=== PATIENT | female | born 1980 ===

== ENCOUNTER 2020-05-25 19:22 | Outpatient (REF) | payer OTHER, MEDICARE, SELFPAY ==
--- NOTE | ~2020-05-25 | MR_ITS ---
EXAMINATION: BRAIN MRI WITHOUT CONTRAST CLINICAL INFORMATION: Multiple sclerosis. COMPARISON: No relevant prior imaging. TECHNIQUE: Multiplanar MR imaging of the brain was performed without contrast. FINDINGS: There is no intracranial mass effect or midline shift. No abnormal extra-axial collection. Lateral and third ventricles are normal. No hydrocephalus. Midline structures including the cervicomedullary junction are normal. No acute bone marrow signal changes. There are a few scattered nonspecific foci of T2 FLAIR signal hyperintensity within the supratentorial white matter. No infratentorial white matter disease. No acute territorial infarct. Intracranial vascular flow voids are maintained. There is no mastoid middle ear effusion. Mild paranasal sinus disease primarily affecting the ethmoid air cells. Globes and orbits are symmetric. MR/MR head/brain wo con IMPRESSION: Unremarkable examination. No evidence of demyelinating disease.
== END 2020-05-25 19:23 | disposition home or self-care (01) ==
LOC: HO.MRI 19:22
PROVIDERS: Visit Provider Internal Medicine
DX: G35 Multiple sclerosis (principal)
CPT/HCPCS: 70551

== ENCOUNTER → 2021-04-21 10:40 | Outpatient (REF) | payer OTHER, MEDICARE, SELFPAY ==
--- NOTE | 2021-04-21 10:44 | CA_ITS ---
Acquisition Time: 2021-04-21 10:38:35 Total Exercise Time: 00:05:36 Test Indications: CP Medications: SEE CHART Protocol: ABRAHAM Max HR: 153 BPM 86% of Pred: 177 BPM Max BP: 192/090 mmHG Max Work Load: 7.0 METS Exercise stress test with exercise 5 min 36 sec of Abraham protocol, achieving 86% MPHR, with report of moderate shortness of breath and 9/10 left chest burning , without arrythmia, with hypertensive response to exercise with max BP 192/90, without EKG changes meeting criteria for ischemia. In recovery her chest discomfort gradually improved and resolved and her BP returned to below baseline. Test reviewed with Dr Adorno. Message sent to Dr Martin with findings and recommendation for pharmacological nuclear stress test. Referred By: Josseline Carrera Overread By: SHANNAN GUEVARA
== END ==
LOC: HO.CARD 10:40
PROVIDERS: Visit Provider Internal Medicine
DX: R07.2 Precordial pain (principal)
CPT/HCPCS: 93017

== ENCOUNTER 2021-04-25 17:27 | Outpatient (REF) | payer OTHER, SELFPAY ==
[2021-04-25 17:47] LABS: Hematocrit 40.8 % (37.0-47.0); Hemoglobin 13.3 g/dl (12.0-16.0); Mean Corpuscular HGB Conc 32.6 g/dl (31.0-35.0); Mean Corpuscular Hemoglobin 29.6 pg (27.0-33.0); Mean Corpuscular Volume 90.7 fL (80.0-98.0); Mean Platelet Volume 12.1 fL (9.4-12.3); Platelet Count 221 X10*3/uL (160-400); White Blood Count 7.6 X10*3/uL (4.8-10.8)
[2021-04-25 17:47] LABS: Appearance Urine CLEAR; Color Urine YELLOW; Glucose Urine UA NEG (NEG); Leukocyte Esterase Urine TRACE (NEG); Nitrite Urine NEG (NEG); UACC Culture Trigger YES; Urine Blood NEG (NEG); Urine Ketones NEG (NEG); Urine Protein NEG (NEG-TRACE)
[2021-04-25 18:06] LABS: Alanine Aminotransferase 74 U/L (0-31); Alkaline Phosphatase 82 U/L (39-117); Anion Gap 14 (12-20); Aspartate Amino Transferase 60 U/L (5-31); Bilirubin Total 0.2 mg/dL (0.0-1.0); Blood Urea Nitrogen 10 mg/dL (9-16); Calcium 9.3 mg/dL (8.4-10.2); Carbon Dioxide 26 mmol/L (22-29); Chloride 106 mmol/L (96-108); Estimated Glomerular Filt Rate > 60; Glucose Random 95 mg/dL (60-115); Potassium 4.5 mmol/L (3.3-5.1); Sodium 141 mmol/L (135-145)
[2021-04-25 18:48] LABS: Bacteria Urine 1+ /LPF; RBC Urine 0 /HPF (0); Squamous Epithelial Cell Urine 1+ /LPF; WBC Urine 0-2 /HPF (0-4)
== END 2021-04-25 17:28 | disposition home or self-care (01) ==
LOC: HO.LAB 17:27
PROVIDERS: PCP Internal Medicine; Visit Provider Nurse Practitioner Family
DX: M54.9 Dorsalgia, unspecified (principal)
CPT/HCPCS: 36415; 80053; 81001; 85027; 87086; 87147

== ENCOUNTER → 2021-04-26 11:59 | Outpatient (BNVA) | payer MEDICARE, OTHER, SELFPAY | PROVIDERS: PCP Internal Medicine; Referring Provider Internal Medicine; Visit Provider Physician Assistant Surgical | DX: Z13.89 Encounter for screening for other disorder (principal) ==

== ENCOUNTER → 2021-05-03 13:53 | Outpatient (BNVA) | payer OTHER, MEDICARE, SELFPAY | PROVIDERS: PCP Internal Medicine; Referring Provider Internal Medicine; Visit Provider Physician Assistant Surgical | DX: E66.01 Morbid (severe) obesity due to excess calories (principal); Z71.3 Dietary counseling and surveillance | CPT/HCPCS: 99212 ==

== ENCOUNTER 2021-05-18 12:52 | Outpatient (REF) | payer OTHER, MEDICARE, SELFPAY ==
--- NOTE | ~2021-05-18 | XR_ITS ---
EXAMINATION: XR CHEST CLINICAL INFORMATION: Morbid obesity COMPARISON: 03/07/2019 TECHNIQUE: 2 views of the chest were obtained. FINDINGS: Normal symmetric lung volumes. No parenchymal consolidation. No pleural effusion. No pneumothorax. Cardiomediastinal silhouette and pulmonary vascularity are within normal limits. No acute osseous abnormalities. XR/XR chest 2V IMPRESSION: No acute findings
--- NOTE | 2021-05-18 12:59 | ECG_ITS ---
Test Reason : E66.01 Blood Pressure : / mmHG Vent. Rate : 091 BPM Atrial Rate : 091 BPM P-R Int : 162 ms QRS Dur : 074 ms QT Int : 356 ms P-R-T Axes : 043 013 007 degrees QTc Int : 437 ms Normal sinus rhythm Normal ECG When compared with ECG of 11-JUL-2019 16:07, No significant change was found Referred By: Adonis Fox Electronically Signed By:JOE CHANG MD
[2021-05-18 14:13] LABS: Estimated Average Glucose 105 mg/dL; Hemoglobin A1c % 5.3 %
[2021-05-18 14:32] LABS: C Reactive Protein 0.79 mg/dL (< or = 0.50); Cholesterol 194 mg/dL; HDL Cholesterol 50 mg/dL; Iron 110 mcg/dL (30-160); LDL Cholesterol Calculated 111 mg/dl; Percent Iron Saturation 24 % (15-50); Total Iron Binding Capacity 454 mcg/dL (228-428); Triglycerides 169 mg/dL; Unsaturated Iron Binding 344 ug/dL
[2021-05-18 14:54] LABS: Ferritin 185 ng/mL (10-250); TSH reflex Free T4 1.55 uIU/mL (0.32-4.0); Vitamin D 25-OH Total 24.4 ng/mL (>30)
[2021-05-18 15:05] LABS: Folate 19.6 ng/mL (> or = 4.0); Vitamin B12 759 pg/mL (200-900)
[2021-05-18 15:26] LABS: Appearance Urine CLEAR; Color Urine YELLOW; Glucose Urine UA NEG (NEG); Leukocyte Esterase Urine 1+ (NEG); Nitrite Urine NEG (NEG); Specific Gravity - Urine 1.025 (1.005-1.025); UACC Culture Trigger YES; Urine Blood NEG (NEG); Urine Ketones 5 MG/DL (NEG); Urine Protein NEG (NEG-TRACE)
[2021-05-18 15:41] LABS: Bacteria Urine 2+ /LPF; Squamous Epithelial Cell Urine TRACE /LPF
[2021-05-19 15:02] LABS: Calcium (PTHI) 9.3 mg/dL (8.6-10.2); PTHI 54 pg/mL (16-77)
[2021-05-23 01:47] LABS: Zinc 101 mcg/dL (60-130)
[2021-05-23 09:17] LABS: Vitamin A 63 mcg/dL (38-98)
[2021-05-23 12:37] LABS: Vitamin B1 23 nmol/L (8-30)
== END 2021-05-18 12:53 | disposition home or self-care (01) ==
LOC: HO.XRAY 12:52
PROVIDERS: Nurse Practitioner Family; PCP Internal Medicine; Visit Provider Physician Assistant Surgical
DX: Z01.818 Encounter for other preprocedural examination (principal); E66.01 Morbid (severe) obesity due to excess calories
CPT/HCPCS: 36415; 71046; 80061; 81001; 82306; 82607; 82728; 82746; 83036; 83540; 83970; 84425; 84443; 84590; 84630; 86140; 87086; 87147; 93005

== ENCOUNTER → 2021-05-23 08:06 | Outpatient (BNVA) | payer MEDICARE, OTHER, SELFPAY | PROVIDERS: PCP Internal Medicine; Visit Provider Surgery | DX: Z13.89 Encounter for screening for other disorder (principal) | CPT/HCPCS: Q3014 ==

== ENCOUNTER → 2021-05-25 12:30 | Outpatient (BNVA) | payer OTHER, MEDICARE, SELFPAY | PROVIDERS: PCP Internal Medicine; Visit Provider Counselor Mental Health | DX: F33.0 Major depressive disorder, recurrent, mild (principal) | CPT/HCPCS: 90791 ==

== ENCOUNTER → 2021-06-01 09:09 | Outpatient (REF) | payer OTHER, MEDICARE, SELFPAY ==
--- NOTE | ~2021-06-01 | NM_ITS ---
Lexiscan Myocardial perfusion study Indication: Chest pain, assess for coronary disease and ischemia Technique: The patient was brought in for a Lexiscan perfusion study on 06/01/2021 and was injected 0.4 mg of Lexiscan intravenously. Within a minute of this injection 35 mCi of sestamibi was given intravenously. Images were obtained using the SPECT gamma camera interlaced with the gating device. Images were obtained in supine position. Resting perfusion study was performed on 06/02/2021. Patient was administered 35 mCi of sestamibi intravenously at rest. Images were then obtained in supine position. Total DLP 159mGy-cm. Images were processed with the software and compared side to side in short axis, horizontal long axis and vertical long axis views. Findings: Raw acquisition was reviewed. The stress perfusion study showed no significant perfusion abnormality. Both uncorrected as well as CT attenuation corrected images were reviewed. The gated study shows normal LV systolic function with calculated LVEF of > 70%. LV cavity is normal in size. The gated study shows normal wall thickening and contraction of segments. Resting study shows no significant perfusion abnormality. Gating at rest reveals normal wall motion with ejection fraction at 57%. The findings are consistent with no reversible or fixed perfusion abnormality. NM/NM cardiolite stress test Impression: 1. Myocardial perfusion imaging study shows likely normal perfusion. No definitive evidence of any ischemia or infarction. 2. Gated LVEF is 73% during stress and 57% during rest. 3. Transient ischemic dilatation not present. EKG component of the test reported separately.
--- NOTE | 2021-06-01 09:18 | CA_ITS ---
Acquisition Time: 2021-06-01 09:30:08 Total Exercise Time: 00:02:00 Test Indications: CP Medications: SEE CHART Protocol: LEXISCAN Max HR: 130 BPM 73% of Pred: 177 BPM Max BP: 114/062 mmHG Max Work Load: 1.0 METS Pharmalogical stress test using Lexiscan while sitting and kicking her feet. Pt tolerated well, denies any anginal sx. EKG without any arrhythmias, non-diagnostic for ischemia. Normotensive response to test. Test reviewed with Dr. Adorno. Referred By: Josseline Carrera Overread By: Alyssa Lagunas NP
== END ==
LOC: HO.CARD 09:09
PROVIDERS: PCP Internal Medicine; Visit Provider Internal Medicine
DX: R07.2 Precordial pain (principal)
CPT/HCPCS: 78452; 93017; A9500; J0280; J2785

== ENCOUNTER → 2021-06-08 08:06 | Outpatient (BNVA) | payer OTHER, MEDICARE, SELFPAY | PROVIDERS: PCP Internal Medicine; Visit Provider Dietitian, Registered | DX: E66.01 Morbid (severe) obesity due to excess calories (principal) | CPT/HCPCS: 97802 ==

== ENCOUNTER → 2021-06-15 14:00 | Outpatient (BNVA) | payer OTHER, MEDICARE, SELFPAY | PROVIDERS: PCP Internal Medicine; Visit Provider Counselor Mental Health | DX: F33.0 Major depressive disorder, recurrent, mild (principal); E66.01 Morbid (severe) obesity due to excess calories | CPT/HCPCS: 90834 ==

== ENCOUNTER 2021-06-16 12:50 | Outpatient (REF) | payer OTHER, MEDICARE, SELFPAY ==
--- NOTE | 2021-06-16 17:15 | PFT_ITS ---
FLOWS: FEV1 91% of predicted at 2.61 L. FVC 84% of predicted at 2.92 L. FEV1 to FVC ratio of 0.89. No bronchodilator response except in small to medium airways. LUNG VOLUMES: Total lung capacity 83% of predicted at 4.08 L. Residual volume 76% of predicted at 1.22 L. Slow vital capacity 86% of predicted at 2.86 L. Expiratory reserve volume 36% of predicted at 0.40 L. Diffusion capacity is normal. IMPRESSION: No obstructive or restrictive ventilatory defect. No bronchodilator response except in small to medium airways. Decreased expiratory reserve volume suggests extrathoracic restriction, likely secondary to abdominal obesity. Federico Bartlett MD AP/MODL / [id number]
[2021-06-17 12:48] LABS: H Pylori Breath Test Negative (Negative)
== END 2021-06-16 12:51 | disposition home or self-care (01) ==
LOC: HO.RESP 12:50
PROVIDERS: Physician Assistant Surgical; PCP Internal Medicine; Visit Provider Internal Medicine
DX: R06.00 Dyspnea, unspecified (principal); E66.01 Morbid (severe) obesity due to excess calories
CPT/HCPCS: 36415; 83013; 94060; 94727; 94729; 99211

== ENCOUNTER → 2021-06-28 14:15 | Outpatient (BNVA) | payer OTHER, MEDICARE, SELFPAY | PROVIDERS: PCP Internal Medicine; Visit Provider Counselor Mental Health | DX: F33.0 Major depressive disorder, recurrent, mild (principal) | CPT/HCPCS: 90834 ==

== ENCOUNTER → 2021-06-29 08:14 | Outpatient (BNVA) | payer OTHER, MEDICARE, SELFPAY | PROVIDERS: PCP Internal Medicine; Visit Provider Surgery | DX: E66.9 Obesity, unspecified (principal) ==

== ENCOUNTER → 2021-06-30 08:14 | Outpatient (BNVA) | payer OTHER, MEDICARE, SELFPAY | PROVIDERS: PCP Internal Medicine; Referring Provider Surgery; Visit Provider Dietitian, Registered | DX: E66.9 Obesity, unspecified (principal); Z68.39 Body mass index [BMI] 39.0-39.9, adult | CPT/HCPCS: 97803 ==

== ENCOUNTER 2021-07-05 09:16 | Outpatient (REF) | payer OTHER, MEDICARE, SELFPAY ==
--- NOTE | ~2021-07-05 | FL_ITS ---
EXAMINATION: XR FLUOROSCOPY UPPER GI WITH AIR CLINICAL INFORMATION: Obesity COMPARISON: None TECHNIQUE: Upper GI was performed using thin and thick barium and effervescent granules. FINDINGS: Esophageal motility is normal. There is gastroesophageal reflux. There is a small sliding-type hiatal hernia. Stomach and duodenum are normal-appearing. No fold thickening, mass, ulcer or stricture is seen FLUOROSCOPY TIME: 0.8 minutes DOSE AREA PRODUCT: 4.3 chilel per centimeter squared. 20 saved fluoroscopic images. FL/FL upper GI w air IMPRESSION: Gastroesophageal reflux and small sliding-type hiatal hernia.
--- NOTE | ~2021-07-05 | XR_ITS ---
EXAMINATION: XR knee LT 2V, XR knee RT 2V CLINICAL INFORMATION: Pain COMPARISON: Knee radiographs 04/24/2014 TECHNIQUE: 4 views of the bilateral knees FINDINGS: RIGHT KNEE: No acute fracture or dislocation. Mild degenerative changes of the knee involving the patellofemoral joint with degenerative spurring, quadriceps and Achilles tendon enthesopathy. Trace suprapatellar joint effusion. Soft tissues are unremarkable. LEFT KNEE: No acute fracture or dislocation. Mild degenerative changes of the knee involving the patellofemoral compartment with small total femoral osteophytes. Trace suprapatellar joint effusion. Soft tissues are unremarkable. 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
--- NOTE | ~2021-07-05 | XR_ITS ---
EXAMINATION: XR knee LT 2V, XR knee RT 2V CLINICAL INFORMATION: Pain COMPARISON: Knee radiographs 04/24/2014 TECHNIQUE: 4 views of the bilateral knees FINDINGS: RIGHT KNEE: No acute fracture or dislocation. Mild degenerative changes of the knee involving the patellofemoral joint with degenerative spurring, quadriceps and Achilles tendon enthesopathy. Trace suprapatellar joint effusion. Soft tissues are unremarkable. LEFT KNEE: No acute fracture or dislocation. Mild degenerative changes of the knee involving the patellofemoral compartment with small total femoral osteophytes. Trace suprapatellar joint effusion. Soft tissues are unremarkable. 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
--- NOTE | ~2021-07-05 | US_ITS ---
EXAMINATION: US COMPLETE ABDOMEN WITH LIVER ELASTOGRAPHY CLINICAL INFORMATION: Obesity COMPARISON: Previous abdominal ultrasound from 2014 TECHNIQUE: Real-time imaging of the abdominal viscera. Noninvasive ultrasound liver fibrosis assessment is performed using Sim ElastPQ point quantification shear wave elastography (2D-SWE) with a C5-2 MHz transducer. Multiple elastography samples are obtained. FINDINGS: PANCREAS: Normal. ABDOMINAL AORTA: The proximal, middle, and distal aortic segments are normal in caliber. INFERIOR VENA CAVA: Visualized portions are normal. LIVER: Liver echotexture is increased. The liver demonstrates normal size and contour. No focal lesion or intrahepatic biliary duct dilatation. The right lobe measures 17 cm in length. The left lobe measures 12 cm in length. Portal flow is normal/hepatopedal Shear wave liver elastography median stiffness is 1.5 m/s (reference: normal median stiffness is 1.3 m/s or less). IQR/median stiffness to assess sampling precision is 0.07 (reference: good quality data set is IQR/median stiffness of 0.15 or less). GALLBLADDER: Surgically removed. COMMON BILE DUCT: Normal in caliber measuring 0.6 cm in diameter. RIGHT KIDNEY: Normal. No hydronephrosis. No renal calculi or focal parenchymal lesions. The kidney measures 10 cm in maximum dimension. LEFT KIDNEY: Normal. No hydronephrosis. No renal calculi or focal parenchymal lesions. The kidney measures 11 cm in maximum dimension. SPLEEN: Normal. The spleen measures 11 cm in maximum dimension. FREE FLUID: None. US/US abdomen comp w elastography IMPRESSION: 1. Impression: Echogenic liver suggestive of fatty infiltration. 2. Liver elastography: Adequate liver sampling. In the absence of other known clinical signs, rules out compensated advanced chronic liver disease. REFERENCE: Society of Radiologists in Ultrasound Liver Stiffness Thresholds (2020): LIVER STIFFNESS THRESHOLDS: *Liver Stiffness equal or less than 1.3 m/s: High probability of being normal. *Liver Stiffness less than 1.7 m/s: In the absence of other known clinical signs, rules out compensated advanced chronic liver disease. *Liver Stiffness 1.7-2.1 m/s: Suggestive of compensated advanced chronic liver disease but need further test for confirmation. *Liver Stiffness over 2.1 m/s: Rules in compensated advanced chronic liver disease. *Liver Stiffness over 2.4 m/s: Suggestive of clinically significant portal hypertension. QUALITY OF DATA SET: *IQR/Median value equal or less than 0.15 implies a quality data set. *IQR/Median value over 0.15 implies a poor quality data set. SIGNIFICANT CHANGE FROM PRIOR EXAM: Significant change if liver stiffness measurement is 10% or greater from prior exam. OTHER CONSIDERATIONS: The stage of liver fibrosis may be overestimated in the setting of acute hepatitis, liver inflammation, elevated liver function tests, hepatic vascular congestion, obstructive cholestasis, non-fasting state, and infiltrative diseases such as amyloidosis and lymphoma. In some patients with NAFLD, the liver stiffness thresholds for compensated advanced chronic liver disease may be lower. In causes other than viral hepatitis and NAFLD, liver stiffness thresholds are not well established.
== END 2021-07-05 09:17 | disposition home or self-care (01) ==
LOC: HO.US 09:16
PROVIDERS: Visit Provider Surgery
DX: E66.01 Morbid (severe) obesity due to excess calories (principal); M25.562 Pain in left knee; M25.561 Pain in right knee
CPT/HCPCS: 73560; 74246; 76705; 76981

== ENCOUNTER → 2021-07-07 11:40 | Outpatient (BNVA) | payer OTHER, MEDICARE, SELFPAY | PROVIDERS: PCP Internal Medicine; Visit Provider Surgery | DX: E66.9 Obesity, unspecified (principal) ==

== ENCOUNTER → 2021-07-12 12:45 | Outpatient (BNVA) | payer OTHER, MEDICARE, SELFPAY | PROVIDERS: PCP Internal Medicine; Visit Provider Counselor Mental Health | DX: Z13.89 Encounter for screening for other disorder (principal) | CPT/HCPCS: 90834 ==

== ENCOUNTER → 2021-07-28 14:15 | Outpatient (BNVA) | payer OTHER, MEDICARE, SELFPAY | PROVIDERS: PCP Internal Medicine; Visit Provider Counselor Mental Health | DX: F33.0 Major depressive disorder, recurrent, mild (principal) | CPT/HCPCS: 90832 ==

== ENCOUNTER 2021-08-04 08:43 | Outpatient (REF) | payer OTHER, MEDICARE, SELFPAY ==
--- NOTE | ~2021-08-04 | XR_ITS ---
EXAMINATION: XR ABDOMEN KUB CLINICAL INDICATION: Calculus of kidney. COMPARISON: None TECHNIQUE: AP view of the abdomen. FINDINGS: There is scattered moderate stool and gas seen throughout the colon without any significant distention. There are surgical justin in the right upper quadrant from cholecystectomy changes. Partially visualized kidneys are grossly unremarkable. There is no organomegaly. No gross bony abnormality. XR/XR KUB IMPRESSION: Moderate constipation. No radiopaque calculi seen in this kidney however both kidneys are partially masked by stool in the colon.
[2021-08-04 09:14] LABS: MANUAL DIFF FLAG NO
[2021-08-04 09:40] LABS: Basophils Percent Auto 0.6 % (0-2); Eosinophils Absolute Auto 0.1 X10*3/uL (0.0-0.4); Eosinophils Percent Auto 1.9 % (0-4); Hematocrit 42.2 % (37.0-47.0); Hemoglobin 14.1 g/dl (12.0-16.0); Imm Gran Abs Auto 0.01 X10*3/uL (0.00-0.03); Imm Gran Pct Auto 0.2 % (0.0-0.4); Lymphocytes Absolute Auto 1.9 X10*3/uL (1.2-4.9); Lymphocytes Percent Auto 34.9 % (20-40); Mean Corpuscular HGB Conc 33.4 g/dl (31.0-35.0); Mean Corpuscular Hemoglobin 29.7 pg (27.0-33.0); Mean Platelet Volume 12.7 fL (9.4-12.3); Monocytes Absolute Auto 0.4 X10*3/uL (0.1-1.2); Neutrophils Absolute Auto 2.9 x10*3/uL (2.0-8.3); Neutrophils Percent Auto 54.4 % (45-73); Platelet Count 215 X10*3/uL (160-400); Red Blood Count 4.74 X10*6/uL (4.20-5.50); Red Cell Distribution Width 13.1 % (11.0-16.0); White Blood Count 5.4 X10*3/uL (4.8-10.8)
[2021-08-04 10:19] LABS: Alanine Aminotransferase 189 U/L (0-31); Albumin Level 4.2 g/dL (3.5-5.0); Alkaline Phosphatase 77 U/L (39-117); Anion Gap 11 (12-20); Aspartate Amino Transferase 91 U/L (5-31); Bilirubin Total 0.3 mg/dL (0.0-1.0); Blood Urea Nitrogen 10 mg/dL (9-16); Calcium 9.5 mg/dL (8.4-10.2); Carbon Dioxide 27 mmol/L (22-29); Chloride 106 mmol/L (96-108); Cholesterol 193 mg/dL; Estimated Glomerular Filt Rate > 60; Glucose Fasting 115 mg/dL (60-99); HDL Cholesterol 49 mg/dL; LDL Cholesterol Calculated 101 mg/dl; Potassium 4.6 mmol/L (3.3-5.1); Sodium 139 mmol/L (135-145); Triglycerides 215 mg/dL
[2021-08-04 10:41] LABS: Thyroid Stimulating Hormone 2.08 uIU/mL (0.32-4.0); Vitamin D 25-OH Total 55.1 ng/mL (>30)
== END 2021-08-04 08:44 | disposition home or self-care (01) ==
LOC: HO.XRAY 08:43
PROVIDERS: PCP Internal Medicine; Visit Provider Internal Medicine
DX: N20.0 Calculus of kidney (principal); E55.9 Vitamin D deficiency, unspecified; L50.9 Urticaria, unspecified
CPT/HCPCS: 36415; 74018; 80053; 80061; 82306; 84443; 85025

== ENCOUNTER 2021-08-09 08:19 | Inpatient (IN) | payer OTHER, MEDICARE, SELFPAY ==
[2021-08-04 15:44] VITALS: BMI 36.5
[2021-08-05 11:34] LABS: MANUAL DIFF FLAG NO
[2021-08-05 11:50] LABS: Basophils Percent Auto 0.6 % (0-2); Eosinophils Absolute Auto 0.1 X10*3/uL (0.0-0.4); Eosinophils Percent Auto 1.3 % (0-4); Hematocrit 40.3 % (37.0-47.0); Hemoglobin 13.4 g/dl (12.0-16.0); Imm Gran Abs Auto 0.01 X10*3/uL (0.00-0.03); Imm Gran Pct Auto 0.2 % (0.0-0.4); Lymphocytes Absolute Auto 2.3 X10*3/uL (1.2-4.9); Lymphocytes Percent Auto 37.5 % (20-40); Mean Corpuscular HGB Conc 33.3 g/dl (31.0-35.0); Mean Corpuscular Hemoglobin 29.5 pg (27.0-33.0); Mean Corpuscular Volume 88.8 fL (80.0-98.0); Mean Platelet Volume 12.6 fL (9.4-12.3); Monocytes Absolute Auto 0.5 X10*3/uL (0.1-1.2); Monocytes Percent Auto 8.1 % (2-11); Neutrophils Absolute Auto 3.2 x10*3/uL (2.0-8.3); Neutrophils Percent Auto 52.3 % (45-73); Platelet Count 206 X10*3/uL (160-400); Red Blood Count 4.54 X10*6/uL (4.20-5.50); Red Cell Distribution Width 13.2 % (11.0-16.0); White Blood Count 6.2 X10*3/uL (4.8-10.8)
[2021-08-05 11:56] LABS: INTERNATIONAL NORM RATIO 0.9 (0.9-1.1); Prothrombin Time 10.2 SEC (9.9-13.0)
[2021-08-05 11:58] LABS: Partial Thromboplastin Time 32.2 SEC (24.1-38.0)
[2021-08-05 12:04] LABS: Estimated Average Glucose 97 mg/dL
[2021-08-05 12:33] LABS: Alanine Aminotransferase 182 U/L (0-31); Albumin Level 4.1 g/dL (3.5-5.0); Alkaline Phosphatase 77 U/L (39-117); Anion Gap 13 (12-20); Aspartate Amino Transferase 93 U/L (5-31); Bilirubin Total 0.4 mg/dL (0.0-1.0); Blood Urea Nitrogen 10 mg/dL (9-16); C Reactive Protein 1.22 mg/dL (< or = 0.50); Calcium 9.6 mg/dL (8.4-10.2); Carbon Dioxide 25 mmol/L (22-29); Chloride 107 mmol/L (96-108); Creatinine Clr Calc Pharmacy 112.5; Estimated Glomerular Filt Rate > 60; Glucose Random 107 mg/dL (60-115); Potassium 4.5 mmol/L (3.3-5.1); Sodium 140 mmol/L (135-145); Total Protein 6.8 g/dL (6.5-8.0)
[2021-08-05 12:45] LABS: Insulin 23 uU/mL (2-29); TSH reflex Free T4 1.34 uIU/mL (0.32-4.0)
--- NOTE | 2021-08-06 23:47 | P.HPSUR_ITS ---
Pre-Procedural Eval Section A Date of Service: 08/06/21 The patient is an INPATIENT: Yes The History & Physical has been completed within 30 days and I have reviewed it.: Yes Section B Chief Complaint: obesity Relevant Family History (Specify if Yes): No Relevant Social History: None Present Medications: None Medical History: No relevant PMH History of Previous Operations: No relevant previous surgery Allergies: Allergies Allergy/AdvReac Type Severity Reaction Status Date / Time bupropion Allergy Intermediate suicidal Verified 08/04/21 15:04 thoughts with higher doses Compazine Allergy Intermediate increased Verified 08/04/21 08:23 anxiety scopolamine [SCOPOLAMINE] Allergy Intermediate increased Verified 08/04/21 08:23 anxiety Review of Systems Sugical H&P ROS: Negative: Constitution, Cardiovascular, Respiratory, Neurological, Psychiatric, Hem-Onc, Allergic/Immunologic, Gastrointestinal, Genitourinary, Musculoskeletal, Integumentary, Endocrine and Eyes/Ears/N ose/Throat Exam Surgical H&P Exam: Normal: HEENT, Normal: Heart, Normal: Lungs, Normal: Extremities, Normal: Abdomen, Normal: Skin and Normal: Neurological Plan Diagnosis/Plan: Unchanged I have reviewed the history and physical and performed a pertinent physical examination on my patient. No changes have occurred unless specified.
--- NOTE | 2021-08-08 09:00 | HO.ANESPROP2 ---
Documented by User: Evelyn Rashid NP 08/08/21 09:03 HPI - Anesthesia Eval Consult details Narrative: 41yo F for Gastrectomy Sleeve,EGD,Possible diaphragmatic hernia,Possible ventral hernia,possible open PMFSH Active Problems Active Problems: All Active Problems (Updated 08/04/21 @ 15:34 by Radha Wolf RN) Anxiety (Acute) Physical exam (Acute) Mild asthma (Acute) GERD (gastroesophageal reflux disease) (Acute) Allergic rhinitis (Acute) Multiple sclerosis (Acute) Obesity (Acute) Morbid obesity (Acute) Ingrown toenail (Acute) Fibromyalgia (Acute) Knee pain (Acute) Sleep disturbance (Acute) Urticaria (Acute) Mild recurrent major depression (Acute) Skin spots-aging (Acute) Precordial chest pain (Acute) Dyspnea (Acute) Mid back pain (Acute) Left breast lump (Acute) Breast pain, right (Acute) BMI 39.0-39.9,adult (Acute) Flank pain (Acute) BMI 37.0-37.9, adult (Acute) Past Medical History Medical History Anxiety Depression History of COVID-19 Mild asthma Multiple sclerosis Panic attacks PONV (postoperative nausea and vomiting) Family History Family History Father Hypercholesteremia Hypertension Diabetes Obese Mother Diabetes Hypertension Hypercholesteremia Depression with anxiety Maternal Grandmother Liver problem Maternal Aunt Uterine cancer Maternal Uncle Kidney problem Family/Other Mental health disorder Surgical History Surgical History History of bilateral breast reduction surgery History of cholecystectomy History of partial hysterectomy Social History Social History Housing: Apartment Are you a primary hemodialysis patient care specialist to a significant other at home: No Do you presently have visiting nurse or other home services: No Alcohol intake: current Alcohol intake frequency: does not drink Alcohol type: wine and hard liquor Patient Tobacco Use Status: Never used Tobacco Tobacco use type: Cigarette e-Cigarette/Vaping Use: Never Used Second Hand Smoke Exposure: No Use of substances other than those prescribed or required for medical reasons: No Have you been hit, kicked, punched, or otherwise hurt by someone within the past year? If so, by whom?: No Are you DNR?: No Advance Directives: No Advance Directives Information Provided: Yes (info mailed w/ pre-op instructions) Advance Directives on File: No Recently lost weight without trying: No How much weight loss: 24-33 pounds Eating poorly because of decreased appetite: No Nutrition screen score: 3 Nutrition Risks: No Nutritional Risk Patient : No service: No Current occupational status: employed Current occupational exposures/hazards: No Cognitive needs: No Hearing needs: No Vision needs: No Meds Allergies Allergy/AdvReac Type Severity Reaction Status Date / Time bupropion Allergy Intermediate suicidal Verified 08/09/21 08:27 thoughts with higher doses Compazine Allergy Intermediate increased Verified 08/09/21 08:27 anxiety scopolamine [SCOPOLAMINE] Allergy Intermediate increased Verified 08/09/21 08:27 anxiety Home Medications Medication Instructions Recorded Confirmed Last Taken Type albuterol sulfate 90 mcg/actuation inhalation PRN Wheezing 12/09/19 08/04/21 06/09/21 History aerosol inhaler ascorbic acid (vitamin C) 1,000 mg 1,000 mg PO DAILY 08/04/21 08/09/21 08/08/21 History tablet (Vitamin C) diphenhydramine HCl 50 mg capsule 50 mg PO BEDTIME 08/04/21 08/09/21 07/26/21 History ([employer]) drospirenone 3 mg-ethinyl 1 tab PO DAILY 08/04/21 08/09/21 08/08/21 History estradiol 0.02 mg tablet (Priscilla (28)) omeprazole 20 mg capsule,delayed 2 cap PO DAILY 08/04/21 08/09/21 08/08/21 History release vitamin B complex 1 cap PO DAILY 08/04/21 08/09/21 08/08/21 History Exam Exam Date and Time: August 08, 2021 0900 Height,Weight and Vital Signs: Height 5 ft 3 in Weight 93.44 kg Pertinent Lab Results Pertinent Lab Results: Laboratory Tests 08/05/21 08/05/21 08/05/21 11:26 11:33 11:33 WBC 6.2 RBC 4.54 Hgb 13.4 Hct 40.3 MCV 88.8 MCH 29.5 MCHC 33.3 RDW 13.2 Plt Count 206 MPV 12.6 H Immature Gran % (Auto) 0.2 Neut % (Auto) 52.3 Lymph % (Auto) 37.5 Alfalfa % (Auto) 8.1 Eos % (Auto) 1.3 Baso % (Auto) 0.6 Lymph # (Auto) 2.3 Alfalfa # (Auto) 0.5 Eos # (Auto) 0.1 Baso # (Auto) 0.0 Abs Immat Gran (auto) 0.01 Absolute Neuts (auto) 3.2 Absolute Nucleated RBC 0.000 Nucleated RBC % (auto) 0.0 PT 10.2 INR 0.9 APTT 32.2 Sodium Potassium Chloride Carbon Dioxide Anion Gap BUN Creatinine Estim Creat Clear Calc Estimated GFR Random Glucose Estimat Average Glucose Hemoglobin A1c % Insulin Level Calcium Total Bilirubin AST ALT Alkaline Phosphatase C-Reactive Protein Total Protein Albumin TSH Blood Type O Positive Antibody Screen NEGATIVE 08/05/21 08/05/21 11:33 11:33 WBC RBC Hgb Hct MCV MCH MCHC RDW Plt Count MPV Immature Gran % (Auto) Neut % (Auto) Lymph % (Auto) Alfalfa % (Auto) Eos % (Auto) Baso % (Auto) Lymph # (Auto) Alfalfa # (Auto) Eos # (Auto) Baso # (Auto) Abs Immat Gran (auto) Absolute Neuts (auto) Absolute Nucleated RBC Nucleated RBC % (auto) PT INR APTT Sodium 140 Potassium 4.5 Chloride 107 Carbon Dioxide 25 Anion Gap 13 BUN 10 Creatinine 0.70 Estim Creat Clear Calc 112.5 Estimated GFR > 60 Random Glucose 107 Estimat Average Glucose 97 Hemoglobin A1c % 5.0 Insulin Level 23 Calcium 9.6 Total Bilirubin 0.4 AST 93 H ALT 182 H Alkaline Phosphatase 77 C-Reactive Protein 1.22 H Total Protein 6.8 Albumin 4.1 TSH 1.34 Blood Type Antibody Screen Narrative Narrative: EKG 05/2021 Vent. Rate : 091 BPM ? ? Atrial Rate : 091 BPM ?? P-R Int : 162 ms? QRS Dur : 074 ms ? ? QT Int : 356 ms ? ? ? P-R-T Axes : 043 013 007 degrees ?? QTc Int : 437 ms ? Normal sinus rhythm Normal ECG When compared with ECG of 11-JUL-2019 16:07, No significant change was found NM cardiolite stress test 05/2021 Impression: ? 1.? Myocardial perfusion imaging study shows likely normal perfusion. No definitive evidence of any ischemia or infarction. 2.? Gated LVEF is 73% during stress and 57% during rest. 3. Transient ischemic dilatation not present. ? EKG component of the test reported separately. Assessment and Plan Assessment Anesthesia Assessment: Chart Reviewed Documented by User: Rica Rehman MD 08/09/21 10:22 [facility] Active Problems Active Problems: All Active Problems (Updated 08/04/21 @ 15:34 by Radha Wolf RN) Anxiety/ Depression Tachycardia Physical exam (Acute) Mild asthma (Acute) GERD (gastroesophageal reflux disease) (Acute) Allergic rhinitis (Acute) Multiple sclerosis - no meds. Gabapentin only for pain Obesity (Acute) Morbid obesity (Acute) Ingrown toenail (Acute) Fibromyalgia (Acute) Knee pain (Acute) Sleep disturbance (Acute) Urticaria (Acute) Mild recurrent major depression (Acute) Skin spots-aging (Acute) Precordial chest pain (Acute) Dyspnea (Acute) Mid back pain (Acute) Left breast lump (Acute) Breast pain, right (Acute) BMI 39.0-39.9,adult (Acute) Flank pain (Acute) BMI 37.0-37.9, adult (Acute) Not sure if REGINE-thinks may have. Awaiting sleep study. Past Medical History Medical History Anxiety Depression History of COVID-19 Mild asthma Multiple sclerosis Panic attacks PONV (postoperative nausea and vomiting) Family History Family History Father Hypercholesteremia Hypertension Diabetes Obese Mother Diabetes Hypertension Hypercholesteremia Depression with anxiety Maternal Grandmother Liver problem Maternal Aunt Uterine cancer Maternal Uncle Kidney problem Family/Other Mental health disorder Family history of problems with anesthesia: No Surgical History Surgical History History of bilateral breast reduction surgery History of cholecystectomy History of partial hysterectomy History of Problems with Anesthesia: Yes (PONV. Blurred vision for about 6 hours folowing gall bladder surgery. On further questioning, patient had scopolamine patch for a brief period the night before surgery but removed after about 20 minutes secondary to side effects of palpitations-?related. No similar blurring with other surgeries.) Social History Social History Housing: Apartment Are you a primary hemodialysis patient care specialist to a significant other at home: No Do you presently have visiting nurse or other home services: No Alcohol intake: current Alcohol intake frequency: does not drink Alcohol type: wine and hard liquor Patient Tobacco Use Status: Never used Tobacco Tobacco use type: Cigarette e-Cigarette/Vaping Use: Never Used Second Hand Smoke Exposure: No Use of substances other than those prescribed or required for medical reasons: No Have you been hit, kicked, punched, or otherwise hurt by someone within the past year? If so, by whom?: No Are you DNR?: No Advance Directives: No Advance Directives Information Provided: Yes (info mailed w/ pre-op instructions) Advance Directives on File: No Recently lost weight without trying: No How much weight loss: 24-33 pounds Eating poorly because of decreased appetite: No Nutrition screen score: 3 Nutrition Risks: No Nutritional Risk Patient : No service: No Current occupational status: employed Current occupational exposures/hazards: No Cognitive needs: No Hearing needs: No Vision needs: No Meds Allergies Allergy/AdvReac Type Severity Reaction Status Date / Time bupropion Allergy Intermediate suicidal Verified 08/09/21 08:27 thoughts with higher doses Compazine Allergy Intermediate increased Verified 08/09/21 08:27 anxiety scopolamine [SCOPOLAMINE] Allergy Intermediate increased Verified 08/09/21 08:27 anxiety Home Medications Medication Instructions Recorded Confirmed Last Taken Type albuterol sulfate 90 mcg/actuation inhalation PRN Wheezing 12/09/19 08/04/21 06/09/21 History aerosol inhaler ascorbic acid (vitamin C) 1,000 mg 1,000 mg PO DAILY 08/04/21 08/09/21 08/08/21 History tablet (Vitamin C) diphenhydramine HCl 50 mg capsule 50 mg PO BEDTIME 08/04/21 08/09/21 07/26/21 History ([employer]) drospirenone 3 mg-ethinyl 1 tab PO DAILY 08/04/21 08/09/21 08/08/21 History estradiol 0.02 mg tablet (Priscilla (28)) omeprazole 20 mg capsule,delayed 2 cap PO DAILY 08/04/21 08/09/21 08/08/21 History release vitamin B complex 1 cap PO DAILY 08/04/21 08/09/21 08/08/21 History Exam Height,Weight and Vital Signs: Height 5 ft 3 in Weight 93.44 kg Vital Signs Temp Pulse Resp BP Pulse Ox O2 Del Method 08/09/21 09:14 97.6 F 92 16 129/77 100 Room Air Pertinent Lab Results Pertinent Lab Results: Laboratory Tests 08/05/21 08/05/21 08/05/21 11:26 11:33 11:33 WBC 6.2 RBC 4.54 Hgb 13.4 Hct 40.3 MCV 88.8 MCH 29.5 MCHC 33.3 RDW 13.2 Plt Count 206 MPV 12.6 H Immature Gran % (Auto) 0.2 Neut % (Auto) 52.3 Lymph % (Auto) 37.5 Alfalfa % (Auto) 8.1 Eos % (Auto) 1.3 Baso % (Auto) 0.6 Lymph # (Auto) 2.3 Alfalfa # (Auto) 0.5 Eos # (Auto) 0.1 Baso # (Auto) 0.0 Abs Immat Gran (auto) 0.01 Absolute Neuts (auto) 3.2 Absolute Nucleated RBC 0.000 Nucleated RBC % (auto) 0.0 PT 10.2 INR 0.9 APTT 32.2 Sodium Potassium Chloride Carbon Dioxide Anion Gap BUN Creatinine Estim Creat Clear Calc Estimated GFR Random Glucose Estimat Average Glucose Hemoglobin A1c % Insulin Level Calcium Total Bilirubin AST ALT Alkaline Phosphatase C-Reactive Protein Total Protein Albumin TSH Blood Type O Positive Antibody Screen NEGATIVE 08/05/21 08/05/21 11:33 11:33 WBC RBC Hgb Hct MCV MCH MCHC RDW Plt Count MPV Immature Gran % (Auto) Neut % (Auto) Lymph % (Auto) Alfalfa % (Auto) Eos % (Auto) Baso % (Auto) Lymph # (Auto) Alfalfa # (Auto) Eos # (Auto) Baso # (Auto) Abs Immat Gran (auto) Absolute Neuts (auto) Absolute Nucleated RBC Nucleated RBC % (auto) PT INR APTT Sodium 140 Potassium 4.5 Chloride 107 Carbon Dioxide 25 Anion Gap 13 BUN 10 Creatinine 0.70 Estim Creat Clear Calc 112.5 Estimated GFR > 60 Random Glucose 107 Estimat Average Glucose 97 Hemoglobin A1c % 5.0 Insulin Level 23 Calcium 9.6 Total Bilirubin 0.4 AST 93 H ALT 182 H Alkaline Phosphatase 77 C-Reactive Protein 1.22 H Total Protein 6.8 Albumin 4.1 TSH 1.34 Blood Type Antibody Screen Laboratory Results - last 24 hr 08/08/21 12:40 COVID-19 (JUANITA) Negative COVID-19 Clin Com See Note Airway Mallampati Class: II TM Dist: >3cm Neck ROM: Full (though some arthritis in neck) Loose/Missing/Broken Teeth: No (Patient denies) Heart: RRR Lungs: CTAB Assessment and Plan Final Anesthetic Review Family History of Problems with Anesthesia: No History of Problems with Anesthesia: Yes (PONV. Blurred vision for about 6 hours folowing gall bladder surgery. On further questioning, patient had scopolamine patch for a brief period the night before surgery but removed after about 20 minutes secondary to side effects of palpitations-?related. No similar blurring with other surgeries.) NPO: Yes ASA Class: III Final Preanesthetic Review: No Changes in Pt Med Stat, Meds/Allgs Chart Reviewed, Consent Obtained/Reviewed and Anes Risks/Benef Reviewed Patient Risk: Intermediate Procedure Risk: Intermediate Assessment/Block/Sedation in SS: Assess/Block/Sedation-SS Anesthetic Plan Anesthetic Plan: GA Disposition: Standard PACU and Inp. Admit - Standard Bed
[2021-08-08 13:17] LABS: COVID-19 Test Negative (Negative); IDNOW Serial# 16C4AD1C
[2021-08-09] VITALS (17 sets, daily range): BP systolic 110–142; BP diastolic 61–82; PULSE 87–96; RESP 16–20; TEMP 36.4–36.9; O2SAT 99–100
[2021-08-09] MEDS: Lactated Ringers 1,000 ML 999 ML IV (09:56)
--- NOTE | 2021-08-09 10:37 | PM.PNGS ---
Subjective Subjective Date of Service: 08/10/21 Interval history: Feels well. Mild incisional pain. She is tolerating phase 1 bariatric diet Physical Exam Vital Signs: Vital Signs: Last Vital Signs Temp 97.6 F 08/09/21 09:14 Pulse 92 08/09/21 09:14 Resp 16 08/09/21 09:14 BP 129/77 08/09/21 09:14 Pulse Ox 100 08/09/21 09:14 O2 Del Method 08/09/21 09:14 BMI result Body Mass Index 36.5 GI: Inspection: Yes normal to inspection, Yes incision (clean, dry and intact) and Yes obesity Extrem: Right lower extremity: normal to inspection (no calf tenderness) Left lower extremity: normal to inspection (no calf tenderness) Objective Data Active Medications Albuterol Sulfate (Albuterol Sulfate (0.083%) 2.5 Mg/3 Ml Vial.Neb) 2.5 mg INHALE ONCE PRN PRN Reason: Shortness of Breath/Wheezing Lactated Ringer's (Lr) 1,000 mls @ 100 mls/hr IVCONT .Q10H KALANI Labs CBC & Chem 7: 08/09/21 14:23 08/09/21 18:59 Labs: Laboratory Results - last 24 hr 08/08/21 12:40 COVID-19 (JUANITA) Negative COVID-19 Clin Com See Note Procedures Date of Service Date of Service: 08/10/21 Progress Note: A&P Assessment and plan (1) Obesity: Status: Acute Assessment and Plan: s/p laparoscopic sleeve gastrectomy, lysis of adhesions, diaphragmatic hernia repair and gastropexy Doing well Will check am labs and if OK the patient will be discharged home (2) BMI 36.0-36.9,adult: Status: Acute (3) GERD (gastroesophageal reflux disease): Status: Acute (4) Fibromyalgia: Status: Acute (5) Anxiety: Status: Acute (6) Depression: Status: Acute (7) Hypertension: Status: Acute (8) Tachycardia: Status: Acute (9) Mild asthma: Status: Acute (10) Multiple sclerosis: Status: Acute (11) Diaphragmatic hernia: Status: Acute (12) Steatosis, liver: Status: Acute (13) S/P laparoscopic sleeve gastrectomy: Status: Acute Time Spent With Patient Time: Total time spent is greater than 50% in coordination of care (as documented) at patient's floor/unit and/or counseling patient: Quality Stroke Does the patient have a stroke diagnosis?: No VTE Prior VTE?: No VTE Risk Level:: Surgical - moderate VTE Device Contraindication: N/A - Device Ordered VTE Drug Contraindication: Treatment Not Indicated
--- NOTE | 2021-08-09 10:40 | P.BOP_ITS ---
Brief Operative Note Date of Service: 08/09/21 Pre-op diagnosis: Obesity and comorbidities (see below) Procedure: INITIAL PATIENT BMI ON PRESENTATION AT OUR OFFICE: 41.3 kg/m2 LAST BMI BEFORE SURGERY: 36.5 kg/m2 COMORBIDITIES: GERD, diaphragmatic hernia, hypertension, tachycardia, multiple sclerosis, fibromyalgia, depression, anxiety ?The patient presented to the Weight Management Program with significant obesity that was negatively impacting the patient's comorbidities as listed above.? The program is a phased program with a special focus on preoperative medical weight management to promote substantial weight loss and prepare the patients for the second phase of the program: bariatric surgery. The patient participated in an intensive weekly lifestyle ?intervention and exercise program during which the patient ?has lost between the initial office visit and the last preoperative visit 27.5lbs, or 11.77% of initial actual body weight. It was deemed appropriate for the patient to now have bariatric surgery. In light of the current Covid-19 pandemic and the well documented strong association of obesity and increased risk of worse outcomes if infected with Covid-19 (REFERENCES: https://pubmed.ncbi.nlm.nih.gov/01517956/ ,? https://pubmed.ncbi.nlm.nih.gov/84046815/ ), any delay in undergoing bariatric surgery may lead to the patient's worsening health condition and increased?risk of more severe Covid-19 disease if infected. In addition a recent?study from [facility] [place] published in [employer] on 02/07/2021 ([email or web address]) found that, among patients with obesity, substantial weight loss achieved with surgery was associated with improved outcomes of COVID-19 infection. The findings suggest that obesity can be a modifiable risk factor for the severity of COVID-19 infection. In addition, the patient met the BMI-criteria for bariatric surgery based on the BMI on initial presentation. The patient should not be penalized for achieving such weight loss because ?it is not sustainable long-term without surgical intervention and it was achieved in preparation for bariatric surgery ?under my direction and based on my published research ([email or web address]).[email or web address] and? https://www.soard.org/article/A2963-4602(82)26038-X/pdf ) ?that a 10% preoperative weight loss improves long-term weight loss after surgery and reduces perioperative complications.? Insurance carriers such as [facility] have endorsed my recommendations ?and have included in their policies criteria to include a 10% preoperative weight loss requirement. PROCEDURE: Esophago-gastroscopy, laparoscopic sleeve gastrectomy and laparoscopic gastropexy INDICATIONS: This is a 41 year-old female who was electively scheduled for laparoscopic, possibly open sleeve gastrectomy. The risks and complications of the procedure were discussed with the patient in advance, particularly the possibility of ; pulmonary embolism; staple line leak; bleeding; GERD; cardiac, pulmonary, or renal complications; as well as long-term problems such as insufficient weight loss, vitamin deficiency, strictures, or ulcers. The patient understood all the risks, and was in agreement to proceed with surgery. DESCRIPTION OF PROCEDURE: After informed consent was obtained from the patient, the patient was given preoperative antibiotics, and was transferred to the operating room. After successful induction of general anesthesia, pneumatic compression devices were placed on both lower extremities. An upper endoscopy was performed next. The oropharynx and esophagus appeared to be within normal limits. There was no diaphragmatic hernia present. The stomach was entered. Then after all fluid and air were suctioned and the stomach was fully decompressed, the scope was withdrawn and secured in the mid esophagus. The patient was then prepped and draped in the usual sterile manner, and abdominal access was established at the right upper quadrant with the Radha technique. A 12 mm blunt port was inserted, and the abdomen was insufflated with CO2 to a pressure of 15 mmHg. Under direct visualization, additional ports were placed, specifically two 5 mm Versi-step ports to the left upper quadrant, and a 5 mm Versi-Step port to the right upper quadrant. 1% lidocaine plain was used to infiltrate all port sites as well as all fascia defects. Following that, the patient was placed in a steep reverse Trendelenburg position. An additional 5 mm port was placed to the right flank for the Mediflex retractor that was used to retract the left lobe of the liver. The gastro-esophageal fat pad was opened with the ultrasonic device (Thunderbeat, Olympus) and the anterior esophagus and hiatus were exposed. The angle of His was opened with the ultrasonic device the fundus of the stomach from any diaphragmatic and splenic attachments. I then opened the gastrocolic ligament between the transverse colon and the greater curvature of the stomach with the ultrasonic device to enter the lesser sac and facilitate the ligation of the short gastric vessels. I started at a mid-point along the greater curvature and using the Thunderbeat, all short gastric vessels were divided all the way to the angle of His until the left susanne was completely dissected at its entirety. I then divided the gastro-colic ligament distally to a distance of about 3-4 cm proximal to the pylorus. The stomach was then divided transversely with two Endo EARL-45 purple, one EARL- 45 orange load, one EARL-60 purple load and two EARL-60 articulating orange loads using the AEON stapler and loads. Every effort was made that the gastric sleeve had a tubular shape and an even caliber throughout. Once the sleeve resection was completed, the staple line of the gastric sleeve was reinforced with Hemoclips. The resected stomach was retrieved without difficulty from the Radha port. A gastropexy was then performed in order to prevent postoperative GERD and partial gastric volvulus. Several interrupted 2.0 Surgidac sutures were placed between the sleeve's staple line and the previously divided greater omentum and gastro-colic ligament using the Endo-Stitch device. ?An upper endoscopy was performed. There was no narrowing at the GE junction. The scope was easily advanced all the way to the pylorus which was clearly visualized. There was no narrowing anywhere and the sleeve's caliber was even throughout. The sleeve's staple line was inspected and there was no evidence of ischemia, bleeding or dehiscence. At that point the gastroscope was withdrawn from the patient?s mouth while we were decompressing the bowel and the stomach from any remaining air. I looked into the lesser sac to see how the sleeve was situating and it was situating well. There was no bleeding from the staple line, spleen, or short gastric vessels. The Mediflex retractor was removed, and the undersurface of the liver was inspected and there was no bleeding. The patient was placed in supine position. I closed the fascial defect of the 12 mm port site with a figure of eight #1 Polysorb suture. Then 40ml of Ropivacaine plain with 10 mg of Dexamethasone were used to infiltrate the fascial closure as well as all skin incisions. A total of 7ml of Zynrelef was applied in the Radha wound. At this point, the abdomen was deflated, all ports were removed under direct vision, and no bleeding was noted from any of the port sites. The skin incisions were irrigated with saline and were closed with 4-0 absorbable monofilament sutures. Steri-Strips and OpSites were used to cover all incisions. The patient was extubated and was transferred in stable condition to the recovery room for further care. I was present and performed all larsen parts of the procedure. Ms. Jenkins was the music library assistant. There were no residents to assist with this case. Wyatt Ontiveros MD, PhD, FACS Surgeon: Angel Ontiveros MD Anesthesia: GETA, local and other (TAP block) Was an Procurement Coordinator used for this Procedure?: No Procurement Coordinator: Tania Jenkins Estimated blood loss (mL): 10 IV fluids (mL): 3,000 Urine output (mL): 0 (No Patel to record) Pathology: other (Stomach) Condition: stable Disposition: PACU
[2021-08-09] MEDS: ceFAZolin Sodium/Dextrose,Iso 2 GM/50 ML PIGGYBACK IV ×2 (10:55→17:22)
--- NOTE | 2021-08-09 13:34 | PM.DS ---
DS: Providers Provider Date of Service: 08/10/21 Date of admission: 08/09/21 08:19 Primary care physician: Josseline Carrera MD DS: Diagnosis Discharge Diagnosis (1) Obesity: Status: Acute (2) BMI 36.0-36.9,adult: Status: Acute (3) GERD (gastroesophageal reflux disease): Status: Acute (4) Fibromyalgia: Status: Acute (5) Anxiety: Status: Acute (6) Depression: Status: Acute (7) Hypertension: Status: Acute (8) Tachycardia: Status: Acute (9) Mild asthma: Status: Acute (10) Multiple sclerosis: Status: Acute (11) Diaphragmatic hernia: Status: Acute (12) Steatosis, liver: Status: Acute DS: Summary Hospital Course Hospital Course: ADMITTING DIAGNOSIS: morbid obesity, Multiple sclerosis, tachycardia, anx/depression, fibromyalgia DISCHARGE DIAGNOSIS: same, s/p laparoscopic sleeve gastrectomy PAST SURGICAL HISTORY: cholecystectomy, hysterectomy PROCEDURE: upper endoscopy, laparoscopic sleeve gastrectomy DISCHARGE SUMMARY: History of Present Illness: The patient is a 41 year-old woman with a BMI of 41.3 kg/m2 and associated co-morbidities as described above. The patient had extensive work-up,lost 27.5 lbs preoperatively and was electively scheduled for laparoscopic, possible open sleeve gastrectomy and gastropexy. Risks and complications of the surgery were discussed with the patient in advance, particularly the possibility of , pulmonary embolism, anastomotic leak, bleeding, bowel injury, GERD, cardiac, renal or pulmonary complications. The patient understood all the risks and was in agreement with the surgical plan. Hospital Course: The patient underwent an uneventful laparoscopic sleeve gastrectomy with gastropexy and repair of diaphragmatic hernia on the day of admission. Postoperatively, the patient was transferred to the surgical floor. The patient received IV Acetaminophen and IV dilaudid for pain control. Patient was started on bariatric phase 1 diet POD #0. On postoperative day one, the patient was feeling well without nausea, vomiting, fevers, or tachycardia. The patient had some mild incisional pain and the abdomen was soft. On the morning of postoperative day one, the patient was continued on 1 ounce of water or ice every half hour. During the day, the patient did fairly well, having some incisional pain, but able to ambulate adequately and to tolerate liquids well. Since the patient is doing well, we decided that the patient was ready to be discharged. The patient was given instructions to follow-up with me next week and to call my office for any fever over 101, persistent abdominal pain, nausea, vomiting, GERD, symptoms of DVT such as calf tenderness, or leg swelling, or pulmonary embolism such as chest pain or shortness of breath. The patient was also instructed to drink 40-60 ounces of liquids per day using the 1-ounce cups. The patient had been given prescriptions for Tylenol for pain, Zofran prn for nausea, and pantoprazole and carafate previously. The patient was encouraged to ambulate and use the incentive spirometer. The patient was allowed to shower, but no baths, and encouraged to stay active at home. All of these instructions were given to the patient personally. All questions were answered and the patient understood all instructions, the instructions were also given to the patient in print. Time Spent with Patient Time attestation: Total time spent providing and/or coordinating discharge services: Discharge coordination time: Less than 30 minutes Quality: Safe Use of Opioids Does Pt have an Active Cancer Diagnosis on the Problem List?: No Quality: Stroke Does the patient have a stroke diagnosis?: No Physical Exam Vital Signs: Vital Signs: Last Vital Signs Temp 97.6 F 08/09/21 09:14 Pulse 92 08/09/21 09:14 Resp 16 08/09/21 09:14 BP 129/77 08/09/21 09:14 Pulse Ox 100 08/09/21 09:14 O2 Del Method 08/09/21 09:14 BMI result Body Mass Index 36.5 DS: Data Data Completed and Pending Pending studies at discharge: Pending at discharge 08/09/21 12:44 Surgical [PTH] Routine Discharge Plan Discharge Anticipated Discharge Date/Time: 08/10/21 10:29 Patient Disposition: Home, Self-Care Discharge Diagnosis: s/p sleeve gastrectomy Referrals: Josseline Orellana MD [Primary Care Provider] - 1 Week Discharge Medications: Continued fluticasone propionate 50 mcg/actuation spray,suspension 1 spray intranasal DAILY PRN (Reason: nasal congestion) 30 Days Qty: 15.8 6RF bupropion HCl 150 mg tablet extended release 24 hr 150 mg PO QAM Qty: 90 2RF cetirizine 10 mg tablet 10 mg PO DAILY PRN (Reason: allergy symptoms) 90 Days Qty: 90 3RF lorazepam 1 mg tablet 1 mg PO BID PRN (Reason: anxiety) 30 Days Qty: 60 0RF propranolol 20 mg tablet 20 mg PO BID Qty: 180 2RF diphenhydramine HCl [Unisom SleepGels] 50 mg Capsule 50 mg PO BEDTIME pantoprazole 40 mg tablet,delayed release (DR/EC) 40 mg PO DAILY Qty: 30 2RF ondansetron HCl 4 mg tablet 4 mg PO Q12H Qty: 20 0RF sucralfate 100 mg/mL suspension 10 ml PO BID Qty: 400 2RF Held gabapentin 800 mg tablet 800 mg PO BID Qty: 180 1RF Hold Instructions: Resume on 08/15/21. As needed only drospirenone-ethinyl estradiol [Priscilla (28)] 3-0.02 mg Tablet 1 tab PO DAILY Hold Instructions: Discuss when to restart with Dr Ontiveros Discontinued cholecalciferol (vitamin D3) 125 mcg (5,000 unit) capsule 125 mcg PO DAILY Qty: 30 3RF ascorbic acid (vitamin C) [Vitamin C] 1,000 mg Tablet 1,000 mg PO DAILY vitamin B complex [B Complex] Capsule 1 cap PO DAILY Discharge Orders: Discharge Order (Routine); Ordered 08/10/21 Ordered By: Angel Ontiveros Activity on Discharge: No heavy lifting Stand Alone Forms: Patient Portal Discharge page Care Plan Goals: weight loss Health Concerns: morbid obesity Plan of Treatment: No tub baths, sex or returning to work until discussed at first post op appointment. No exercise, alcohol, tobacco or illegal drug use. Continue to use incentive spirometer hourly while awake. Walk in home for 5- 10 minutes every 2 hours during the first week. Continue phase 1 diet today and start phase 2 diet tomorrow morning. Follow all instructions in the bariatric handbook and call with any questions. 1. Please call your doctor or come back to the emergency room should any new symptoms arise. 2. You will receive a courtesy call from [facility] 24-48 hours after discharge. 3. Activity: abstain from alcohol, practice limited stair climbing, no bending, no driving, no exercise, no illicit substances, no lifting, no sex, no tub bath, no work. 4. Diet: continue as discussed with Dr. Ontiveros. 5. Dressing Change/Wound Care: Do not change or remove surgical dressings unless they are wet or soiled. 6. Call your doctor if: - Your temperature exceeds 101.5 F - You experience excessive pain or swelling - You have an unexpected reaction to medication - You have excessive bleeding - You experience continued vomiting/nausea - Your incision begins to separate - Your incision shows signs of infection such as increased redness, swelling, excessive pain, heat, or drainage (light blood or clear fluid is normal) 7. General instructions: No lifting greater than 5 lbs for the next 4 weeks[address] driving within 24 hours of taking narcotic pain medications. If you do not move your bowels in the next 2 days, please take milk of magnesia over the counter. Please follow the post op diet and do not advance your diet until you are seen in the office in about 2 weeks. Please walk around your home every hour or two to prevent blood clots from forming in your legs. You do not need to wake from sleeping to walk. Please sleep in a bed or couch to prevent kinking at the hips and knees. Please take your incentive spirometer (your lung horticulture supervisor) home with you and use it for the next few days to prevent pneumonias. You may shower, no hot tubs, baths or swimming pools. Please call the office with any questions or concerns such as increasing abdominal pain, fever, chills, shortness of breath, chest pain, leg pain or swelling, or redness or drainage from your incisions. Do not hesitate to contact the office with any questions at . The patient's medical history has been reviewed and they are considered low risk for post op DVT and therefore DVT prophylaxis is not considered necessary. Travel after surgery was reviewed. The patient has not disclosed any travel plans during the first 30 days after surgery and they have been advised that within the first 30 days after surgery any bus, plane, train or car travel over 2 hours in duration is contraindicated due to the possibility of developing blood clots from immobility. Any travel, needs to include periods of ambulation of 10 minutes in duration every 2 hours. The patient was instructed to discuss any plans for travel during this period with their bariatric surgeon. Assessment: juanita, post op sleeve gastrectomy
[2021-08-09] MEDS: Famotidine/PF 20 MG/2 ML VIAL IVPUSH (14:50)
[2021-08-09 15:05] LABS: Hematocrit 40.1 % (37.0-47.0); Hemoglobin 13.6 g/dl (12.0-16.0)
[2021-08-09] MEDS: Metoclopramide HCl 10 MG/2 ML VIAL IVPUSH ×2 (15:19→21:41)
[2021-08-09] MEDS: ondansetron HCL 4 MG/2 ML VIAL IVPUSH ×2 (15:20→23:55)
[2021-08-09 15:26] LABS: Anion Gap 21 (12-20); Blood Urea Nitrogen 7 mg/dL (9-16); Carbon Dioxide 15 mmol/L (22-29); Chloride 106 mmol/L (96-108); Creatinine Clr Calc Pharmacy 110.9; Estimated Glomerular Filt Rate > 60; Glucose Random 186 mg/dL (60-115); Potassium 5.6 mmol/L (3.3-5.1); Sodium 136 mmol/L (135-145)
[2021-08-09] MEDS: HYDROmorphone HCl 0.5 MG/0.5 ML SYRINGE 0.25 MG IVPUSH ×2 (15:55→16:53)
[2021-08-09] MEDS: Lactated Ringers 1,000 ML 100 ML IVCONT (17:26)
[2021-08-09] MEDS: Loratadine 10 MG TABLET PO (19:01)
--- NOTE | 2021-08-09 19:31 | PC.NURSE ---
patient ambulated to bathroom to voidx1 400 ml yellow urine. patient steady gait no nausea. ambulated in pacu area as well. returned to bed. new ice packs placed to abdomen. dressings to abdomen c/d/i.
[2021-08-09 19:33] LABS: Anion Gap 18 (12-20); Blood Urea Nitrogen 5 mg/dL (9-16); Calcium 8.9 mg/dL (8.4-10.2); Carbon Dioxide 20 mmol/L (22-29); Chloride 104 mmol/L (96-108); Creatinine Clr Calc Pharmacy 112.5; Estimated Glomerular Filt Rate > 60; Glucose Random 149 mg/dL (60-115); Potassium 4.6 mmol/L (3.3-5.1); Sodium 137 mmol/L (135-145)
--- NOTE | 2021-08-09 20:05 | PC.NURSE ---
2000 patient utilizing incentive spirometer good effort.
[2021-08-09] MEDS: LORazepam 1 MG TABLET PO (21:27)
[2021-08-09] MEDS: Gabapentin 400 MG CAPSULE 800 MG PO (21:27)
[2021-08-09] MEDS: Propranolol HCL 20 MG TABLET PO (21:27)
--- NOTE | 2021-08-09 22:48 | PC.NURSE ---
Checked on patient, currently sleeping in bed. Call welch within reach, will continue to monitor.
--- NOTE | 2021-08-09 23:38 | PC.NURSE ---
Patient assisted to the bathroom, voided once. She reports minimal pain, ice pack given and abdominal binder re-adjusted. See MAR for med administration. Call welch within reach, will continue to monitor.
[2021-08-10] MEDS: 0.9 % Sodium Chloride Flush 3 ML SYRINGE IVFLUSH (00:07)
[2021-08-10 00:39] VITALS: BP 123/71; PULSE 78; RESP 18; TEMP 36.7; O2SAT 100
[2021-08-10] MEDS: Famotidine/PF 20 MG/2 ML VIAL IVPUSH (03:00)
[2021-08-10] MEDS: Lactated Ringers 1,000 ML 100 ML IVCONT (03:28)
[2021-08-10 05:10] VITALS: BP 114/65; PULSE 76; RESP 16; TEMP 36.7; O2SAT 100
[2021-08-10] MEDS: ondansetron HCL 4 MG/2 ML VIAL IVPUSH (06:01)
[2021-08-10] MEDS: buPROPion HCl XL 150 MG TAB.ER.24H PO (09:10)
[2021-08-10] MEDS: Propranolol HCL 20 MG TABLET PO (09:12)
[2021-08-10 09:15] VITALS: BP 122/73; PULSE 77; RESP 18; TEMP 36.6; O2SAT 100
== END 2021-08-10 10:15 | disposition home or self-care (01) | DRG 620 ==
PROVIDERS: Physician Assistant; Physician Assistant Surgical; Admitting Provider Surgery; PCP Internal Medicine; Visit Provider Surgery
PROC: 0DB64Z3 Excision of Stomach, Percutaneous Endoscopic Approach, Vertical (ICD-10-PCS; CPT 43845; principal; 2021-08-09 10:10)
DX: E66.01 Morbid (severe) obesity due to excess calories (principal); F33.9 Major depressive disorder, recurrent, unspecified; K21.9 Gastro-esophageal reflux disease without esophagitis; M79.7 Fibromyalgia; G35 Multiple sclerosis; K76.0 Fatty (change of) liver, not elsewhere classified; F41.9 Anxiety disorder, unspecified; Z20.822 Contact with and (suspected) exposure to COVID-19; Z68.36 Body mass index [BMI] 36.0-36.9, adult; Z86.16 Personal history of COVID-19; Z85.42 Personal history of malignant neoplasm of other parts of uterus; Z88.8 Allergy status to other drugs, medicaments and biological substances; Z79.51 Long term (current) use of inhaled steroids; Z79.899 Other long term (current) drug therapy
CPT/HCPCS: 36415; 80048; 80053; 83036; 83525; 84443; 85014; 85018; 85025; 85610; 85730; 86140; 86850; 86900; 86901; 87635; 88307; 88342; A4649; C9088; J0131; J0690; J1100; J1170; J2250; J2370; J2405; J2550; J2765; J2795; J3010

== ENCOUNTER → 2021-08-18 14:12 | Outpatient (BNVA) | payer OTHER, MEDICARE, SELFPAY | PROVIDERS: PCP Internal Medicine; Visit Provider Nurse Practitioner Family | DX: R00.0 Tachycardia, unspecified (principal); R00.2 Palpitations; E66.9 Obesity, unspecified; Z68.35 Body mass index [BMI] 35.0-35.9, adult | CPT/HCPCS: 93005 ==

== ENCOUNTER → 2021-09-05 14:15 | Outpatient (BNVA) | payer OTHER, MEDICARE, SELFPAY | PROVIDERS: PCP Internal Medicine; Visit Provider Dietitian, Registered | DX: E66.9 Obesity, unspecified (principal); Z68.34 Body mass index [BMI] 34.0-34.9, adult | CPT/HCPCS: 97803 ==

== ENCOUNTER → 2021-09-19 12:08 | Outpatient (BNVA) | payer OTHER, MEDICARE, SELFPAY | PROVIDERS: PCP Surgery; Visit Provider Dietitian, Registered | DX: E66.9 Obesity, unspecified (principal) | CPT/HCPCS: 97803 ==

== ENCOUNTER → 2021-10-10 11:45 | Outpatient (BNVA) | payer OTHER, MEDICARE, SELFPAY | PROVIDERS: PCP Surgery; Referring Provider Surgery; Visit Provider Dietitian, Registered | DX: E66.9 Obesity, unspecified (principal); Z71.3 Dietary counseling and surveillance | CPT/HCPCS: 97803 ==

== ENCOUNTER → 2021-11-09 14:16 | Outpatient (BNVA) | payer OTHER, MEDICARE, SELFPAY | PROVIDERS: PCP Surgery; Referring Provider Surgery; Visit Provider Dietitian, Registered | DX: E66.9 Obesity, unspecified (principal); Z68.31 Body mass index [BMI] 31.0-31.9, adult | CPT/HCPCS: 97803 ==

== ENCOUNTER → 2021-12-07 14:11 | Outpatient (BNVA) | payer OTHER, MEDICARE, SELFPAY | PROVIDERS: PCP Surgery; Visit Provider Dietitian, Registered | DX: E66.9 Obesity, unspecified (principal); Z68.30 Body mass index [BMI] 30.0-30.9, adult | CPT/HCPCS: 97803 ==

== ENCOUNTER → 2022-06-27 14:06 | Outpatient (BNVA) | payer OTHER, MEDICARE, SELFPAY | PROVIDERS: PCP Internal Medicine; Referring Provider Internal Medicine; Visit Provider Nurse Practitioner Family ==

== ENCOUNTER 2022-07-14 14:46 | Emergency (ER) | payer OTHER, MEDICARE, SELFPAY ==
[2022-07-14 14:51] VITALS: BP 100/70; PULSE 85; O2SAT 99
[2022-07-14 14:56] VITALS: BP 110/80; PULSE 82; RESP 18; TEMP 36.7; O2SAT 98; BMI 27.3
--- NOTE | 2022-07-14 14:57 | ED_ITS ---
HPI - General Adult General Chief complaint: General Medical Stated complaint: dizzy, per ems Source: patient and EMS Mode of arrival: EMS Limitations: no limitations History of Present Illness HPI narrative: Patient is a 42 year old assigned female at with a history of cancer presenting to the emergency department today with intermittent dizziness and right armpit lumps. Patient states that over the last 3 weeks she has had episodes of dizziness and swelling in her right armpit. Patient denies any lightheadedness, abdominal pain, nausea, vomiting, fever, chills, blurry vision, double vision, loss of vision, chest pain, difficulty breathing, shortness of breath, back pain, night sweats, pain with urination, increased urinary frequency, increased urinary urgency, blood in her urine or stool, syncope or a near syncopal episode, recent trauma or falls, bowel incontinence, bladder incontinence, bowel retention, bladder retention, or any other complaints at this time. Onset (ago): week(s) (3) Relieving factors: none Exacerbating factors: none Associated symptoms: denies other symptoms Treatments prior to arrival: none Related Data Home Medications Medication Instructions Recorded Confirmed drospirenone 3 mg-ethinyl 1 tab PO DAILY 08/04/21 02/08/22 estradiol 0.02 mg tablet (Priscilla (28)) glatiramer 20 mg/mL subcutaneous 20 mg subcut DAILY 02/08/22 06/27/22 syringe (Copaxone) Previous Rx's Medication Instructions Recorded fluticasone propionate 50 1 spray intranasal DAILY PRN nasal 09/27/20 mcg/actuation nasal congestion 30 days #15.8 mL spray,suspension bupropion HCl 150 mg 24 hr tablet, 150 mg PO QAM #90 tabs 02/08/22 extended release cetirizine 10 mg tablet 10 mg PO DAILY PRN allergy 02/08/22 symptoms 90 days #90 tabs gabapentin 800 mg tablet 800 mg PO BID #180 tabs 02/08/22 naproxen 500 mg tablet 500 mg PO BID PRN pain 90 days 02/08/22 #180 tabs lorazepam 1 mg tablet 1 mg PO BID PRN anxiety 30 days 07/14/22 #60 tabs propranolol 20 mg tablet 20 mg PO BID 90 days #180 tabs 07/14/22 Allergies Allergy/AdvReac Type Severity Reaction Status Date / Time bupropion Allergy Intermediate suicidal Verified 07/14/22 14:04 thoughts with higher doses Compazine Allergy Intermediate increased Verified 07/14/22 14:04 anxiety scopolamine [SCOPOLAMINE] Allergy Intermediate increased Verified 07/14/22 14:04 anxiety Review of Systems Constitutional: Constitutional: Reports no additional constitutional complaints, Denies chills, Denies fever(s) and Denies night sweats Eyes: Eyes: Reports no additional eye complaints, Denies blurry vision, Denies change in vision, Denies diplopia, Denies eye discharge, Denies loss of vision and Denies eye pain ENT: Reports dizziness Cardiovascular: Cardiovascular: Reports no additional cardiovascular complaints, Denies chest pain, Denies lightheadedness, Denies Loss of Conscious ness and Denies dyspnea Respiratory: Respiratory: Reports no additional respiratory complaints and Denies dyspnea Gastrointestinal: Gastrointestinal: Reports no additional gastrointestinal com plaints, Denies abdominal pain, Denies melena, Denies hematochezia, Denies change in bowel habits and Denies change in stool character Genitourinary: Genitourinary: Denies hematuria, Denies urinary frequency, Denies dysuria, Denies urinary incontinence, Denies urinary hesitancy and Denies urinary urgency Musculoskeletal: Musculoskeletal: Reports no additional musculoskeletal complaints, Denies numbness and Denies tingling Integumentary/Breasts: Comments: right armpit swelling Neurologic: Reports dizziness, Denies loss of vision, Denies numbness and Denies tingling Psychiatric: Psychiatric: Reports no additional psychiatric complaints Endocrine: Endocrine: Reports no additional endocrine complaints Hematologic/Lymphatic: Hematologic/Lymphatic: Reports no additional hematologic/lymphatic complaints Allergic/Immunologic: Allergic/Immunologic: Reports no additional allergic/immunologic complaints [facility] Past Medical History Attestation statement: The following information was validated with the patient. Source: old records reviewed and nursing notes reviewed Medical History Allergic rhinitis BMI 36.0-36.9,adult BMI 37.0-37.9, adult BMI 39.0-39.9,adult Breast pain, right Diaphragmatic hernia Dyspnea Fibromyalgia Flank pain GERD (gastroesophageal reflux disease) History of COVID-19 Ingrown toenail Knee pain Left breast lump Mid back pain Mild recurrent major depression Morbid obesity Obesity Panic attacks Physical exam PONV (postoperative nausea and vomiting) Precordial chest pain Skin spots-aging Sleep disturbance Urticaria Surgical History History of bilateral breast reduction surgery History of cholecystectomy History of partial hysterectomy History of sleeve gastrectomy S/P laparoscopic sleeve gastrectomy Family History Family History Father Hypercholesteremia Hypertension Diabetes Obese Mother Diabetes Hypertension Hypercholesteremia Depression with anxiety Maternal Grandmother Liver problem Maternal Aunt Uterine cancer Maternal Uncle Kidney problem Family/Other Mental health disorder Social History Social History Housing: Apartment Are you a primary intensive care unit registered nurse to a significant other at home: No Do you presently have visiting nurse or other home services: No Alcohol intake: current Alcohol intake frequency: holidays/special occasions only Alcohol type: wine and hard liquor Patient Tobacco Use Status: Never used Tobacco Tobacco use type: Cigarette e-Cigarette/Vaping Use: Never Used Second Hand Smoke Exposure: No Advance Directives: No Advance Directives Information Provided: No service: No Current occupational status: employed Current occupational exposures/hazards: No Cognitive needs: No Hearing needs: No Vision needs: No Physical Exam ED Vital Signs: Vital Signs - 24 hr 07/14/22 14:56 Temperature 98.1 F Pulse Rate 82 Respiratory Rate 18 Blood Pressure 110/80 Pulse Oximetry 98 Oxygen Delivery Method Room Air BMI result Body Mass Index 27.3 Const General: cooperative, no acute distress, alert and awake Nutritional Appearance: well nourished Orientation/consciousness: patient oriented x3 Limitations: no limitations [facility] Head: Yes normal to inspection and Yes atraumatic Ears: hearing grossly normal bilaterally and external ears normal General nose exam: Normal external nose present, no nasal discharge noted and no epistaxis Face and sinus: Yes normal facial exam, No abrasion and No laceration Mouth: Normal oral and palatal mucosa present, no drooling and no muffled voice Eyes General: appearance normal, both eyes and all related structures Periorbital: periorbital findings normal Eyelids: Yes eyelids normal Conjunctivae: conjunctivae normal Pupils: Equal, round and reactive pupils present EOM: EOMs intact bilaterally Neck Neck: Yes normal visual inspection, Yes full ROM and Yes no lymphadenopathy Chest Chest palpation & inspection: normal inspection of the chest Resp Effort & Inspection: normal respiratory effort and able to speak in complete sentences GI Inspection: Yes normal to inspection Neuro General: patient oriented x3 and moves all extremities Cranial nerves: Yes Equal, round and reactive pupils present Cognition (Neuro): normal cognition Motor exam (neuro): 5/5 motor strength present throughout Sensory Exam: Normal double simultaneous stimulation for sensation Coordination: [id number] test normal Extrem General: Yes normal to inspection, Yes full ROM and Yes capillary refill normal Psych Appearance: grossly normal Mental Status: mental status grossly normal Affect: normal affect Attitude: cooperative Thought process: Normal thought process present Thought content: Normal thought content present Insight: Good insight present (Psych) Course Course Course Narrative: RME performed by Pat Powers PA-C. Patient is a 42 year old assigned female at presenting to the emergency department with dizziness. Labs ordered. Patient placed back in the waiting room pending room availability and results. Medical Decision Making Medical Decision Making MDM Narrative: Patient is a 42 year old assigned female at with a history of cancer presenting to the emergency department today with intermittent dizziness and swollen lumps in her right axilla. Patient's lab work was unremarkable. Patient's no touch physical examination was unremarkable. I did not evaluate the patient's armpit lumps as I was the provider in triage. Patient eloped from the department before a more thorough physical exam could be performed and before results could be explained to her. Differential Diagnosis Differential Diagnoses: The differential diagnosis associated with the presentation includes dizziness Lab Data [facility] Lab Attestation statement: I reviewed the patient's lab results. My interpretation of these studies and their corresponding values is that they are grossly normal. 07/14/22 15:42 07/14/22 15:42 Labs: Lab Results 07/14/22 07/14/22 07/14/22 Range/Units 15:42 15:42 15:42 WBC 5.9 (4.8-10.8) X10*3/uL RBC 4.93 (4.20-5.50) X10*6/uL Hgb 14.9 (12.0-16.0) g/dl Hct 45.6 (37.0-47.0) % MCV 92.5 (80.0-98.0) fL MCH 30.2 (27.0-33.0) pg MCHC 32.7 (31.0-35.0) g/dl RDW 12.7 (11.0-16.0) % Plt Count 211 (160-400) X10*3/uL MPV 11.9 (9.4-12.3) fL Immature Gran % (Auto) 0.2 (0.0-0.4) % Neut % (Auto) 44.4 L (45-73) % Lymph % (Auto) 43.4 H (20-40) % [place] % (Auto) 8.2 (2-11) % Eos % (Auto) 2.9 (0-4) % Baso % (Auto) 0.9 (0-2) % Lymph # (Auto) 2.5 (1.2-4.9) X10*3/uL [place] # (Auto) 0.5 (0.1-1.2) X10*3/uL Eos # (Auto) 0.2 (0.0-0.4) X10*3/uL Baso # (Auto) 0.1 (0.0-0.2) X10*3/uL Abs Immat Gran (auto) 0.01 (0.00-0.03) X10*3/uL Absolute Neuts (auto) 2.6 (2.0-8.3) x10*3/uL Absolute Nucleated RBC 0.000 (0.0-0.012) X10*3/uL Nucleated RBC % (auto) 0.0 (0.0-0.2) /100WBC Sodium 141 (135-145) mmol/L Potassium 4.4 (3.3-5.1) mmol/L Chloride 107 (96-108) mmol/L Carbon Dioxide 28 (22-29) mmol/L Anion Gap 10 L (12-20) BUN 13 (9-16) mg/dL Creatinine 0.70 (0.5-1.4) mg/dL Estim Creat Clear Calc 96.1 Estimated GFR > 60 Random Glucose 93 (60-115) mg/dL Calcium 9.6 D (8.4-10.2) mg/dL Magnesium 2.4 (1.6-2.6) mg/dL Total Bilirubin 0.4 (0.0-1.0) mg/dL AST 16 (5-31) U/L ALT 13 (0-31) U/L Alkaline Phosphatase 92 (39-117) U/L Total Protein 7.1 (6.5-8.0) g/dL Albumin 4.3 (3.5-5.0) g/dL Beta HCG, Quant < 2 mIU/mL Urine Color Yellow Urine Appearance Clear Urine pH 6.5 (5.0-9.0) Ur Specific [place] 1.020 (1.005-1.025) Urine Protein Negative (Neg-Trace) mg/dL Urine Glucose (UA) Negative (Negative) mg/dL Urine Ketones 15 (Negative) mg/dL Urine Blood Negative (Negative) Urine Nitrite Negative (Negative) Ur Leukocyte Esterase Negative (Negative) Independent Interpretation I performed an independent interpretation of an: EKG Interpretation: Vent. Rate: 089 BPM ? ? Atrial Rate: 089 BPM P-R Int: 182 ms? QRS Dur: 076 ms QT Int: 342 ms ? ? ? P-R-T Axes: 046 013 017 degrees QTc Int: 416 ms ? Normal sinus rhythm Normal ECG When compared with ECG of 18-MAY-2021 13:24, No significant change was found ? Electronically Signed By:SILVERIO CHANG MD Dictated By: Silverio Chang MD Signed By: Electronically signed by Silverio Chang MD 07/15/22 0986 Discharge Plan Discharge Clinical Impression: Dizziness Patient Disposition: Elopement Prescriptions: No Action fluticasone propionate 50 mcg/actuation spray,suspension 1 spray intranasal DAILY PRN (Reason: nasal congestion) 30 Days Qty: 15.8 6RF lorazepam 1 mg tablet 1 mg PO BID PRN (Reason: anxiety) 30 Days Qty: 60 0RF propranolol 20 mg tablet 20 mg PO BID 90 Days Qty: 180 2RF drospirenone-ethinyl estradiol [Priscilla (28)] 3-0.02 mg Tablet 1 tab PO DAILY Hold Instructions: Discuss when to restart with Dr Ontiveros glatiramer [Copaxone] 20 mg/mL syringe 20 mg subcut DAILY gabapentin 800 mg tablet 800 mg PO BID Qty: 180 1RF Hold Instructions: Resume on 08/15/21. As needed only bupropion HCl 150 mg tablet extended release 24 hr 150 mg PO QAM Qty: 90 2RF cetirizine 10 mg tablet 10 mg PO DAILY PRN (Reason: allergy symptoms) 90 Days Qty: 90 3RF naproxen 500 mg tablet 500 mg PO BID PRN (Reason: pain) 90 Days Qty: 180 1RF Discharge Date/Time: 07/14/22 20:40
--- NOTE | 2022-07-14 15:29 | ECG_ITS ---
Test Reason : dizziness Blood Pressure : / mmHG Vent. Rate : 089 BPM Atrial Rate : 089 BPM P-R Int : 182 ms QRS Dur : 076 ms QT Int : 342 ms P-R-T Axes : 046 013 017 degrees QTc Int : 416 ms Normal sinus rhythm Normal ECG When compared with ECG of 18-MAY-2021 13:24, No significant change was found Referred By: Pat Powers Electronically Signed By:JOE CHANG MD
[2022-07-14 15:47] LABS: MANUAL DIFF FLAG NO
--- NOTE | 2022-07-14 15:50 | MHC.EDTECH ---
PT URINE SAMPLE COLLECTED AND BLOOD DRAWN AND SENT TO LAB .
[2022-07-14 15:51] LABS: Appearance Urine Clear; Basophils Absolute Auto 0.1 X10*3/uL (0.0-0.2); Basophils Percent Auto 0.9 % (0-2); Color Urine Yellow; Eosinophils Absolute Auto 0.2 X10*3/uL (0.0-0.4); Eosinophils Percent Auto 2.9 % (0-4); Glucose Urine UA Negative (Negative); Hematocrit 45.6 % (37.0-47.0); Hemoglobin 14.9 g/dl (12.0-16.0); Imm Gran Abs Auto 0.01 X10*3/uL (0.00-0.03); Imm Gran Pct Auto 0.2 % (0.0-0.4); Leukocyte Esterase Urine Negative (Negative); Lymphocytes Absolute Auto 2.5 X10*3/uL (1.2-4.9); Lymphocytes Percent Auto 43.4 % (20-40); Mean Corpuscular HGB Conc 32.7 g/dl (31.0-35.0); Mean Corpuscular Hemoglobin 30.2 pg (27.0-33.0); Mean Corpuscular Volume 92.5 fL (80.0-98.0); Mean Platelet Volume 11.9 fL (9.4-12.3); Monocytes Absolute Auto 0.5 X10*3/uL (0.1-1.2); Monocytes Percent Auto 8.2 % (2-11); Neutrophils Absolute Auto 2.6 x10*3/uL (2.0-8.3); Neutrophils Percent Auto 44.4 % (45-73); Nitrite Urine Negative (Negative); PH 6.5 (5.0-9.0); Platelet Count 211 X10*3/uL (160-400); Red Blood Count 4.93 X10*6/uL (4.20-5.50); Red Cell Distribution Width 12.7 % (11.0-16.0); Urine Blood Negative (Negative); Urine Ketones 15 mg/dL (Negative); Urine Protein Negative (Neg-Trace); White Blood Count 5.9 X10*3/uL (4.8-10.8)
[2022-07-14 16:11] LABS: Alanine Aminotransferase 13 U/L (0-31); Albumin Level 4.3 g/dL (3.5-5.0); Alkaline Phosphatase 92 U/L (39-117); Anion Gap 10 (12-20); Aspartate Amino Transferase 16 U/L (5-31); Bilirubin Total 0.4 mg/dL (0.0-1.0); Blood Urea Nitrogen 13 mg/dL (9-16); Calcium 9.6 mg/dL (8.4-10.2); Carbon Dioxide 28 mmol/L (22-29); Chloride 107 mmol/L (96-108); Creatinine Clr Calc Pharmacy 96.1; Estimated Glomerular Filt Rate > 60; Glucose Random 93 mg/dL (60-115); HCG Quantitative < 2 mIU/mL; Magnesium 2.4 mg/dL (1.6-2.6); Potassium 4.4 mmol/L (3.3-5.1); Sodium 141 mmol/L (135-145); Total Protein 7.1 g/dL (6.5-8.0)
== END 2022-07-14 20:40 | disposition left against medical advice (07) ==
PROVIDERS: Physician Assistant Medical; Emergency Provider Emergency Medicine; PCP Internal Medicine
DX: R42 Dizziness and giddiness (principal); I10 Essential (primary) hypertension; G35 Multiple sclerosis; Z85.9 Personal history of malignant neoplasm, unspecified; Z79.899 Other long term (current) drug therapy
CPT/HCPCS: 36415; 80053; 81003; 83735; 84702; 85025; 93005; 99283

== ENCOUNTER 2022-12-08 11:38 | Outpatient (AMB) | payer OTHER, MEDICARE, SELFPAY ==
--- NOTE | 2022-12-08 11:45 | MHC.PC.OV ---
Vital Signs 12/08/22 11:46 Height 5 ft 3 in Weight 172 lb 6 oz BMI 30.5 BP 100/50 L Blood Pressure Location Lt brachial Position Sitting Intake Visit Reasons: low BP on propranolol Intake Note: Patient is here to follow up on low bp. Complaint of dizziness, SOB, Wooziness and tiredness. 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 Patient currently following with Neurology for MS. Patient presents today for follow-up for low blood pressure currently on propranolol 20 mg b.i.d. for history of palpitations. Patient reports has been checking her blood pressures at home readings are 86/56, 96/60, 107/77. HR 113. on pranolol tachycardia. Patient denies syncopal episodes states she does have some dizziness at times. Patient reports chest tightness like pressure and shortness of breath since 11/30/2022. Patient states pain is reported 4/10. EKG completed in office showed normal sinus rhythm, normal ECG HR 76. Patient follows with Cardiology for palpitations and reports that she has only been taking 10 mg of propranolol b.i.d.. Patient advised to increase salt in her diet and drink plenty of fluids. Patient advised to hold her propranolol for systolic blood pressure less than 110 and follow-up with Cardiology. Labs ordered. [facility] Medical History (Updated 12/08/22 @ 12:00 by JAMAICA Bhatti) Diaphragmatic hernia BMI 36.0-36.9,adult History of COVID-19 Panic attacks PONV (postoperative nausea and vomiting) BMI 37.0-37.9, adult Flank pain BMI 39.0-39.9,adult Breast pain, right Left breast lump Mid back pain Dyspnea Precordial chest pain Skin spots-aging Mild recurrent major depression Urticaria Sleep disturbance Knee pain Fibromyalgia Ingrown toenail Morbid obesity Obesity Allergic rhinitis GERD (gastroesophageal reflux disease) Physical exam Surgical History History of sleeve gastrectomy S/P laparoscopic sleeve gastrectomy History of bilateral breast reduction surgery History of cholecystectomy History of partial hysterectomy Family History Father Hypercholesteremia Hypertension Diabetes Obese Mother Diabetes Hypertension Hypercholesteremia Depression with anxiety Maternal Grandmother Liver problem Maternal Aunt Uterine cancer Maternal Uncle Kidney problem Family/Other Mental health disorder Social History Housing: Apartment Are you a primary chronic care nurse to a significant other at home: No Do you presently have visiting nurse or other home services: No Alcohol intake: current Alcohol intake frequency: holidays/special occasions only Alcohol type: wine and hard liquor Patient Tobacco Use Status: Never used Tobacco e-Cigarette/Vaping Use: Never Used Second Hand Smoke Exposure: No service: No Current occupational status: employed Current occupational exposures/hazards: No Cognitive needs: No Hearing needs: No Vision needs: No Questionnaire Thrive Questionnaire Date Thrive assessed: 08/08/22 ELY-7 AMB Questionnaire ELY-7 Date ELY - 7 assessed: 08/08/22 Source: Developed by Drs. Janusz Larsen, Maria Del Carmen Gonzalez, Santana Badillo and colleagues, with an educational jose from [employer]. Review of Systems Const Denies chills, Denies fatigue, Denies fever(s) and Denies poor appetite Eyes Denies no additional complaints ENT Reports Normal hearing present Card Denies chest pain, Denies syncope, Denies rapid heart rate and Denies dyspnea Resp Denies cough and Denies dyspnea GI Denies change in stool character, Denies constipation, Denies diarrhea, Denies nausea and Denies vomiting Denies urinary frequency, Denies dysuria and Denies urinary urgency Neuro Reports Normal hearing present, Denies confusion and Denies syncope Psych Denies confusion Endo Denies fatigue Physical exam (Primary Care) Vital Signs: Last Vital Signs BP 100/50 L 12/08/22 11:46 BMI result Body Mass Index 30.5 Tobacco/Smoking Status: Tobacco use Status Tobacco use date assessed 12/08/22 12/08/22 11:52 Patient Tobacco Use Status Never used Tobacco 12/08/22 11:52 Tobacco use type 12/05/22 08:58 e-Cigarette/Vaping Use Never Used 12/08/22 11:52 Thrive Assessment: Date of Thrive Assessment Date Thrive assessed 08/08/22 12/08/22 11:52 Const General: No confusion Orientation/consciousness: No confusion HENMT Head: Yes normocephalic and Yes atraumatic Eyes Conjunctivae: conjunctivae normal Chest Chest palpation & inspection: normal inspection of the chest Resp Effort & Inspection: normal respiratory effort Auscultation: clear to auscultation bilaterally, no crackles, no rhonchi and no wheezes Cardio Rate: regular rate Rhythm: regular rhythm Heart sounds: S1 normal heart sound present and S2 normal heart sound present GI Inspection: Yes normal to inspection Neuro General: No confusion Cranial nerves: Yes Normal hearing present Extrem General: No edema Assessment and Plan Assessment & Plan (1) Hypotension: Code(s): I95.9 - Hypotension, unspecified Plan: Patient advised to continue decreased dose of propranolol 10 mg b.i.d. for palpitations. Patient advised to hold propranolol if systolic blood pressure less than 110 and follow-up with Cardiology on parameter recommendations. Labs ordered to further evaluate (2) Palpitations: Code(s): R00.2 - Palpitations Plan: Continue on propranolol 10mg BID. Continue to follow with Cardiology. Patient advised to call Cardiology for parameter recommendations. (3) Multiple sclerosis: Code(s): G35 - Multiple sclerosis Plan: Continue to follow with neurology. (4) Chest pain: Code(s): R07.9 - Chest pain, unspecified Plan EKG NSR, normal ECG Patient has noted history of anxiety, chest tightening feeling possibly related to this given normal ECG. continue on lorazepam 1 mg b.i.d. as needed for this Signs and symptoms reviewed with patient when to seek emergency medical attention or follow-up with PCP. Orders: Orders Comprehensive Met. Panel 12/08/22 I95.9 - Hypotension, unspecified Complete Blood Count Auto Diff 12/08/22 Z13.0 - Encounter for screening for diseases of the blood and blood-forming organs and certain disorders involving the immune mechanism TSH reflex Free T4 12/08/22 Z13.29 - Encounter for screening for other suspected endocrine disorder Coding Level of Care Code Est Pt Level 4 (54855) Diagnoses Hypotension I95.9 Palpitations R00.2 Multiple sclerosis G35 Chest pain R07.9
[2022-12-08 11:46] VITALS: BP 100/50; BMI 30.5
== END 2022-12-08 12:47 | disposition home or self-care (01) ==
PROVIDERS: PCP Internal Medicine; Visit Provider Nurse Practitioner Family
DX: I95.9 Hypotension, unspecified (principal); R00.2 Palpitations; G35 Multiple sclerosis; R07.9 Chest pain, unspecified
CPT/HCPCS: 99214

== ENCOUNTER 2022-12-08 13:05 | Outpatient (REF) | payer OTHER, MEDICARE, SELFPAY ==
[2022-12-08 13:18] LABS: MANUAL DIFF FLAG NO
[2022-12-08 14:21] LABS: Basophils Absolute Auto 0.1 X10*3/uL (0.0-0.2); Eosinophils Absolute Auto 0.2 X10*3/uL (0.0-0.4); Eosinophils Percent Auto 2.6 % (0-4); Hematocrit 42.7 % (37.0-47.0); Hemoglobin 14.1 g/dl (12.0-16.0); Imm Gran Abs Auto 0.02 X10*3/uL (0.00-0.03); Imm Gran Pct Auto 0.3 % (0.0-0.4); Lymphocytes Absolute Auto 2.8 X10*3/uL (1.2-4.9); Lymphocytes Percent Auto 44.4 % (20-40); Mean Corpuscular Hemoglobin 30.3 pg (27.0-33.0); Mean Corpuscular Volume 91.8 fL (80.0-98.0); Mean Platelet Volume 12.1 fL (9.4-12.3); Monocytes Absolute Auto 0.5 X10*3/uL (0.1-1.2); Monocytes Percent Auto 7.8 % (2-11); Neutrophils Absolute Auto 2.7 x10*3/uL (2.0-8.3); Neutrophils Percent Auto 43.9 % (45-73); Platelet Count 229 X10*3/uL (160-400); Red Blood Count 4.65 X10*6/uL (4.20-5.50); Red Cell Distribution Width 11.9 % (11.0-16.0); White Blood Count 6.2 X10*3/uL (4.8-10.8)
[2022-12-08 15:06] LABS: Alanine Aminotransferase 13 U/L (0-31); Albumin Level 4.3 g/dL (3.5-5.0); Alkaline Phosphatase 69 U/L (39-117); Anion Gap 11 (12-20); Aspartate Amino Transferase 17 U/L (5-31); Bilirubin Total 0.7 mg/dL (0.0-1.0); Blood Urea Nitrogen 9 mg/dL (9-16); Calcium 9.6 mg/dL (8.4-10.2); Carbon Dioxide 27 mmol/L (22-29); Chloride 104 mmol/L (96-108); Estimated Glomerular Filt Rate > 60; Glucose Random 76 mg/dL (60-115); Potassium 4.3 mmol/L (3.3-5.1); Sodium 138 mmol/L (135-145)
[2022-12-08 15:21] LABS: TSH reflex Free T4 1.74 uIU/mL (0.32-4.0)
== END 2022-12-08 13:06 | disposition home or self-care (01) ==
LOC: HO.LAB 13:05
PROVIDERS: PCP Internal Medicine; Visit Provider Nurse Practitioner Family
DX: Z13.0 Encounter for screening for diseases of the blood and blood-forming organs and certain disorders involving the immune mechanism (principal); Z13.29 Encounter for screening for other suspected endocrine disorder; I95.9 Hypotension, unspecified
CPT/HCPCS: 36415; 80053; 84443; 85025

== ENCOUNTER 2023-01-30 13:41 | Outpatient (REF) | payer OTHER, MEDICARE, SELFPAY ==
[2023-01-30 15:12] LABS: Influenza A PCR NEGATIVE (Negative); Influenza B PCR NEGATIVE (Negative); Resp Syncy Virus RNA Qual PCR NEGATIVE (Negative); SARS COV2 PCR INHOUSE NEGATIVE (Negative)
== END 2023-01-30 13:42 | disposition home or self-care (01) ==
LOC: HO.LAB 13:41
PROVIDERS: PCP Internal Medicine; Visit Provider Internal Medicine
DX: Z11.52 Encounter for screening for COVID-19 (principal); Z20.822 Contact with and (suspected) exposure to COVID-19; R09.89 Other specified symptoms and signs involving the circulatory and respiratory systems
CPT/HCPCS: 0241U

== ENCOUNTER 2023-04-09 14:31 | Outpatient (AMB) | payer OTHER, MEDICARE, SELFPAY ==
[2023-04-09 14:33] VITALS: BP 100/72; BMI 31.0
--- NOTE | 2023-04-09 14:33 | MHC.PC.OV ---
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 Required: No Accompanied by: Self / Same As Patient Allergies bupropion Allergy (Intermediate, Verified 04/09/23 14:36) suicidal thoughts with higher doses Compazine Allergy (Intermediate, Verified 04/09/23 14:36) increased anxiety scopolamine [SCOPOLAMINE] Allergy (Intermediate, Verified 04/09/23 14:36) increased anxiety Medication List - Last Reconciled 04/09/23 by Josseline Carrera MD bupropion HCl 150 mg PO QAM cetirizine 10 mg PO DAILY PRN 90 days fluticasone propionate 50 mcg/actuation 1 spray intranasal DAILY PRN 30 days gabapentin 800 mg PO TID glatiramer (Copaxone) 20 mg subcut 3XW lorazepam 1 mg PO BID PRN 30 days lorazepam 1 mg (2 x 0.5 mg) PO BID PRN 30 days naproxen 500 mg PO BID PRN 90 days propranolol 10 mg PO BID Tobacco use date assessed: 04/09/23 Dental Screening Dental Screen Date: 04/09/23 Did you have a dental visit in the last 12 months?: Yes Did you have a dental problem in the last 6 months where you did not have access to dental care?: No Was dental information given to patient?: Patient has dentist HPI HPI Comments History of Present Illness Details This is a 43-year-old female with mild major depression and multiple sclerosis that comes for her physical exam. Depression somewhat stable with bupropion. Declines counseling because of the co-pay. Multiple sclerosis is follow by Neurology and is on medication. Had 2 new lesions and Neurology wants to change her medication but she declines. Had uterine cancer and last Pap smear was about 2-3 years ago as per patient. I advised the importance of HOT WORT SETTLER follow-up. Mammogram done 2022. Will be refer to colonoscopy through open access. [facility] Medical History (Updated 04/09/23 @ 15:54 by Josseline Carrera MD) Diaphragmatic hernia BMI 36.0-36.9,adult History of COVID-19 Panic attacks PONV (postoperative nausea and vomiting) BMI 37.0-37.9, adult Flank pain BMI 39.0-39.9,adult Breast pain, right Left breast lump Mid back pain Dyspnea Precordial chest pain Skin spots-aging Mild recurrent major depression Urticaria Sleep disturbance Knee pain Fibromyalgia Ingrown toenail Morbid obesity Obesity Allergic rhinitis GERD (gastroesophageal reflux disease) Physical exam Surgical History History of sleeve gastrectomy S/P laparoscopic sleeve gastrectomy History of bilateral breast reduction surgery History of cholecystectomy History of partial hysterectomy Family History (Updated 04/09/23 @ 15:16 by Josseline Carrera MD) Father Hypercholesteremia Hypertension Diabetes Obese Mother Diabetes Hypertension Hypercholesteremia Depression with anxiety Maternal Grandmother Liver problem Maternal Aunt Uterine cancer Maternal Uncle Kidney problem Family/Other Mental health disorder Social History Housing: Apartment Are you a primary hospice home care coordinator to a significant other at home: No Do you presently have visiting nurse or other home services: No Alcohol intake: current Alcohol intake frequency: holidays/special occasions only Alcohol type: wine and hard liquor Comment: soreness Patient Tobacco Use Status: Never used Tobacco e-Cigarette/Vaping Use: Never Used Second Hand Smoke Exposure: No service: No Current occupational status: employed Current occupational exposures/hazards: No Cognitive needs: No Hearing needs: No Vision needs: No Questionnaire PHQ-9 Over the last 2 weeks, how often have you been bothered by any of the following problems? 1. Little interest or pleasure in doing things: several days 2. Feeling down, depressed, or hopeless: several days 3. Trouble falling or staying asleep, or sleeping too much: nearly every day 4. Feeling tired or having little energy: nearly every day 5. Poor appetite or overeating: several days 6. Feeling bad about yourself - or that you are a failure or have let yourself or your family down: not at all 7. Trouble concentrating on things, such as reading the newspaper or watching television: not at all 8. Moving or speaking so slowly that other people could have noticed. Or the opposite - being so fidgety or restless that you have been moving around a lot more than usual: not at all 9. Thoughts that you would be better off or of hurting yourself in some way: not at all Total score: 9 Depression Screening Interpretation: Positive Depression Screening Follow-up: Existing condition and In treatment Depression Screening Done: Yes 50357 - PHQ-9 Billing: Yes Source: Developed by Drs. Janusz Larsen, Maria Del Carmen Gonzalez, Santana Badillo and colleagues, with an educational jose from [employer]. Thrive Questionnaire Date Thrive assessed: 04/09/23 I am a: Patient What is your living situation today?: I have a steady place to live Within the past 12 months, did the food you bought not last and you didn't have the money to get more?: Never true Within the past 12 months, did you worry whether your food would run out before you got money to buy more?: Never true Do you have trouble paying for medicines?: No Do you have trouble getting transportation to medical appointments?: No Do you have trouble paying your heating and electricity bill?: No Do you have trouble taking care of your child, family member or friend?: No Do you have trouble with day-to-day activities such as bathing, preparing meals, shopping, managing finances, etc.?: No Are you currently unemployed and looking for a job?: No Are you interested in more education?: No Please select the resources that you would like help with: None Currently or been in a relationship where the following occur: no concerns reported THRIVE Score: 0 AUDIT C Alcohol Use Questionnaire (AUDIT-C) 1. How often do you have a drink containing alcohol?: Monthly or less 2. How many drinks containing alcohol do you have on a typical day when you are drinking?: 1 or 2 3. How often do you have six or more drinks on one occasion?: Never Total Score: 1 ELY-7 AMB Questionnaire ELY-7 Date ELY - 7 assessed: 04/09/23 Feeling nervous, anxious, or on edge: 1 = Several days Not being able to stop or control worryin = Not at all Worrying too much about different things: 0 = Not at all Trouble relaxin = Not at all Being so restless that it is hard to sit still: 0 = Not at all Becoming easily annoyed or irritable: 1 = Several days Feeling afraid as if something awful might happen: 0 = Not at all Total ELY-7 score (0-4 normal; 5-9 mild; 10-14 moderate; 15-21 severe): 2 Source: Developed by Drs. Janusz Larsen, Maria Del Carmen Gonzalez, Santana Badillo and colleagues, with an educational jose from [employer]. ELY-7 Assessment Billing ELY-7 Assessment Tool: ELY-7 Assessment 14589 Review of Systems Const All systems reviewed & are unremarkable except as noted in HPI and below Eyes Reports no additional complaints, Denies change in vision and Denies other visual disturbances Card Denies chest pain at rest, Denies chest pain with activity, Denies edema, Denies irregular heart rhythm, Denies claudication, Denies dyspnea, Denies dyspnea on exertion, Denies orthopnea, Denies paroxysmal nocturnal dyspnea and Denies slow heart rate Resp Denies cough, Denies dyspnea and Denies dyspnea on exertion GI Denies abdominal pain, Denies change in bowel habits, Denies excessive flatus, Denies nausea and Denies vomiting Denies urinary incontinence, Denies urinary hesitancy and Denies urinary urgency Musc Denies abnormal gait, Denies atrophy, Denies deformity and Denies limited range of motion Skin/Breast Denies bleeding lesions, Denies changing lesions and Denies rash Neuro Denies abnormal gait, Denies behavioral changes, Denies confusion and Denies lack of coordination Psych Denies behavioral changes and Denies confusion Physical exam (Primary Care) Vital Signs: Last Vital Signs BP 100/72 04/09/23 14:33 BMI result Body Mass Index 31.0 Tobacco/Smoking Status: Tobacco use Status Tobacco use date assessed 04/09/23 04/09/23 14:44 Patient Tobacco Use Status Never used Tobacco 04/09/23 14:44 Tobacco use type 12/05/22 08:58 e-Cigarette/Vaping Use Never Used 04/09/23 14:44 PHQ-9: PHQ-9 Score PHQ-9: Total score 9 04/09/23 15:17 Depression Screening Interpretation: Positive Depression Screening Follow-up: Existing condition and In treatment Thrive Assessment: Date of Thrive Assessment Date Thrive assessed 04/09/23 04/09/23 14:44 Currently or been in a relationship where the following occur: no concerns reported Const General: No confusion Orientation/consciousness: patient oriented x3 and No confusion HENMT Head: Yes normal to inspection, Yes normocephalic and Yes atraumatic Ears: external ears normal Eyes General: appearance normal, both eyes and all related structures Eyelids: Yes eyelids normal Conjunctivae: conjunctivae normal Neck Neck: Yes normal visual inspection and Yes supple Resp Effort & Inspection: normal respiratory effort Auscultation: clear to auscultation bilaterally Cardio Jugular venous distension: no JVD Rate: regular rate Rhythm: regular rhythm Heart sounds: S1 normal heart sound present and S2 normal heart sound present GI Inspection: Yes normal to inspection Palpation (GI): Soft to palpation and nontender Auscultation: normal bowel sounds Skin General skin exam: no rashes or lesions noted Neuro General: patient oriented x3, no focal motor deficits and No confusion Extrem General: Yes full ROM Psych Appearance: grossly normal Assessment and Plan Assessment & Plan (1) Physical exam: Code(s): Z00.00 - Encounter for general adult medical examination without abnormal findings Plan: Repeat in a year. (2) Mild major depression: Code(s): F32.0 - Major depressive disorder, single episode, mild Plan: Continue bupropion (3) Multiple sclerosis: Code(s): G35 - Multiple sclerosis Plan: Continue Copaxone. Follow-up with Neurology. Orders: Orders Vitamin D 25-OH Total Today E55.9 - Vitamin D deficiency, unspecified Lipid Panel Today E78.5 - Hyperlipidemia, unspecified Comprehensive Duncan. Panel Fast Today Z00.00 - Encounter for general adult medical examination without abnormal findings Referrals Open Access Screening Colonoscopy Referral Z12.11 - Encounter for screening for malignant neoplasm of colon Medications: Changed From propranolol 20 mg PO BID 90 days 180 tabs 2RF To propranolol 10 mg PO BID From gabapentin 800 mg PO BID 180 tabs 1RF To gabapentin 800 mg PO TID Coding Level of Care Code Est Pt Prev Care 40-64y(22444) Diagnoses Physical exam Z00.00 Mild major depression F32.0 Multiple sclerosis G35 Additional Codes ELY-7 Assessment Billing - ELY-7 Assessment Tool: ELY-7 Assessment 42178 ([id number]) Time Spent (min) 35
== END 2023-04-09 15:22 | disposition home or self-care (01) ==
PROVIDERS: Visit Provider Internal Medicine
DX: Z00.00 Encounter for general adult medical examination without abnormal findings (principal); F33.0 Major depressive disorder, recurrent, mild; G35 Multiple sclerosis; Z85.42 Personal history of malignant neoplasm of other parts of uterus
CPT/HCPCS: 99396

== ENCOUNTER 2023-07-03 13:24 | Outpatient (AMB) | payer OTHER, MEDICARE, SELFPAY ==
[2023-07-03 13:26] VITALS: BP 100/72; PULSE 91; BMI 30.1
--- NOTE | 2023-07-03 13:26 | MHC.OFFVIS ---
Vital Signs 07/03/23 13:26 Height 5 ft 3 in Weight 169 lb 12.095 oz BMI 30.1 BP 100/72 Blood Pressure Location Lt brachial Position Sitting Pulse 91 Pulse Source Monitor Intake Visit Reasons: 1 year follow up Logistics Clerk Required: No Allergies bupropion Allergy (Intermediate, Verified 07/03/23 13:31) suicidal thoughts with higher doses Compazine Allergy (Intermediate, Verified 07/03/23 13:31) increased anxiety scopolamine [SCOPOLAMINE] Allergy (Intermediate, Verified 07/03/23 13:31) increased anxiety Medication List - Last Reconciled 07/03/23 by Jen Spann QUALITY ASSURANCE REPRESENTATIVE-C bupropion HCl XL 150 mg PO QAM cetirizine 10 mg PO DAILY PRN 90 days fluticasone propionate 50 mcg/actuation 1 spray intranasal DAILY PRN 30 days gabapentin 800 mg PO TID glatiramer (Copaxone) 20 mg subcut 3XW lorazepam 1 mg PO BID PRN 30 days lorazepam 1 mg (2 x 0.5 mg) PO BID PRN 30 days naproxen 500 mg PO BID PRN 90 days propranolol 10 mg PO BID HPI HPI 1 year follow up: Details: Bonilla is a 43-year-old female with past medical history of hyperlipidemia, sinus tachycardia, obesity who underwent bariatric surgery on 08/09/2021, who presents for follow-up. Today she reports she has been doing very well over the last year. She has gained a few lb and is not happy about this. She was experiencing some low blood pressures and reduced her propranolol dose down to 10 mg at bedtime only. She will only take it occasionally in the daytime if she is noticing heart palpitations. She has no lightheadedness, presyncope, syncope, falls. No chest discomfort at rest or with activity. No shortness of breath, PND, orthopnea or edema. Overall she is pleased with how she is feeling. [facility] Medical History Diaphragmatic hernia BMI 36.0-36.9,adult History of COVID-19 Panic attacks PONV (postoperative nausea and vomiting) BMI 37.0-37.9, adult Flank pain BMI 39.0-39.9,adult Breast pain, right Left breast lump Mid back pain Dyspnea Precordial chest pain Skin spots-aging Mild recurrent major depression Urticaria Sleep disturbance Knee pain Fibromyalgia Ingrown toenail Morbid obesity Obesity Allergic rhinitis GERD (gastroesophageal reflux disease) Physical exam Surgical History History of sleeve gastrectomy S/P laparoscopic sleeve gastrectomy History of bilateral breast reduction surgery History of cholecystectomy History of partial hysterectomy Family History Father Hypercholesteremia Hypertension Diabetes Obese Mother Diabetes Hypertension Hypercholesteremia Depression with anxiety Maternal Grandmother Liver problem Maternal Aunt Uterine cancer Maternal Uncle Kidney problem Family/Other Mental health disorder Social History Housing: Apartment Are you a primary health care coach to a significant other at home: No Do you presently have visiting nurse or other home services: No Alcohol intake: current Alcohol intake frequency: holidays/special occasions only Alcohol type: wine and hard liquor Comment: soreness Patient Tobacco Use Status: Never used Tobacco e-Cigarette/Vaping Use: Never Used Second Hand Smoke Exposure: No service: No Current occupational status: employed Current occupational exposures/hazards: No Cognitive needs: No Hearing needs: No Vision needs: No Review of Systems Const All systems reviewed & are unremarkable except as noted in HPI and below ENT Denies dizziness Card Denies chest pain, Denies chest pain at rest, Denies chest pain with activity, Reports rapid heart rate, Denies pedal edema, Denies edema, Denies leg edema, Denies lightheadedness, Denies palpitations, Denies dyspnea, Denies dyspnea on exertion and Denies orthopnea Resp Denies cough, Denies dyspnea and Denies dyspnea on exertion GI Denies hematochezia and Denies change in stool character Musc Denies abnormal gait, Denies limited range of motion, Denies muscle cramps, Denies muscle weakness, Denies numbness, Denies radiating pain into limb, Denies stiffness and Denies tingling Neuro Denies abnormal gait, Denies dizziness, Denies numbness and Denies tingling Endo Denies palpitations Physical Exam Vital Signs: Last Vital Signs Pulse 91 07/03/23 13:26 BP 100/72 07/03/23 13:26 BMI result Body Mass Index 30.1 Const General: cooperative, healthy appearing, comfortable and no acute distress Orientation/consciousness: patient oriented x3 Neck Neck: Yes normal visual inspection and Yes no JVD Resp Effort & Inspection: normal respiratory effort Auscultation: clear to auscultation bilaterally, no crackles, no rales, no rhonchi and no wheezes Cardio Jugular venous distension: no JVD Rate: regular rate Rhythm: regular rhythm Heart sounds: S1 normal heart sound present, S2 normal heart sound present, no murmurs and no rubs Neuro General: patient oriented x3 Extrem General: Yes normal to inspection, No no pedal edema and No calf tenderness Psych Appearance: grossly normal Mental Status: mental status grossly normal Speech and movement: Normal speech and movement present Office Procedures EKG Details: Today, read by me, normal sinus rhythm, no acute ST or T-wave abnormalities, QTC 420 milliseconds, rate 91 [id number], Complete Assessment & Plan Assessment & Plan (1) Sinus tachycardia: Code(s): R00.0 - Tachycardia, unspecified Category: Medical Plan: History of sinus tachycardia with heart palpitations and had been on propanolol 20 mg b.i.d. with good control of her symptom. She then underwent gastric bypass surgery on 08/09/2021. Her propanolol was intially stopped then restarted due to palpitations. She was then on 10mg bid. In the last year she says she has had some issues with low blood pressure. She has further reduced her propranolol to only 10 mg at bedtime. She will take it occasionally in the daytime. EKG done today shows sinus rhythm, no acute ST or T-wave abnormalities, rate 91. Blood pressure 100/72, asymptomatic. Reviewed the need for good hydration. Continue activity as tolerated. If she notices daytime palpitations she can go back to propranolol 10 mg b.i.d.. Avoidance of stimulants reviewed Cardiology follow-up in 1 year, sooner if needed (2) Palpitations: Code(s): R00.2 - Palpitations Category: Medical Plan: Sinus tachycardia. Improved (3) Obesity (BMI 30-39.9): Code(s): E66.9 - Obesity, unspecified Category: Medical Plan: As above. Being followed by Dr. Ontiveros Plan Time spent on chart review, documentation, interview assessment Coding Level of Care Code Est Pt Level 3 (96786) Diagnoses Sinus tachycardia R00.0 Palpitations R00.2 Obesity (BMI 30-39.9) E66.9 CPT Codes EKG - CPT: 34847-[id number], Complete ([id number]) Time Spent (min) 24
== END 2023-07-03 14:07 | disposition home or self-care (01) ==
PROVIDERS: Visit Provider Nurse Practitioner Family
DX: R00.0 Tachycardia, unspecified (principal); R00.2 Palpitations; E66.9 Obesity, unspecified
CPT/HCPCS: 93010; 99213

== ENCOUNTER → 2023-07-03 13:24 | Outpatient (BNVA) | payer OTHER, MEDICARE, SELFPAY | PROVIDERS: Visit Provider Nurse Practitioner Family | DX: R00.0 Tachycardia, unspecified (principal); R00.2 Palpitations; E66.9 Obesity, unspecified; Z68.30 Body mass index [BMI] 30.0-30.9, adult | CPT/HCPCS: 93005 ==

== ENCOUNTER 2023-10-10 13:37 | Outpatient (AMB) | payer OTHER, MEDICARE, SELFPAY ==
[2023-10-10 13:40] VITALS: BP 110/70; BMI 32.9
--- NOTE | 2023-10-10 13:40 | A.OFFPC_ITS ---
Vital Signs 10/10/23 13:40 Height 5 ft 3 in Weight 186 lb BMI 32.9 BP 110/70 Blood Pressure Location Lt brachial Position Sitting Intake Visit Reasons: anxiety,ms Intake Note: Patient here for a follow up Anxiety, MS Health Education Director Required: No Accompanied by: Self / Same As Patient Allergies bupropion Allergy (Intermediate, Verified 10/10/23 13:56) suicidal thoughts with higher doses Compazine Allergy (Intermediate, Verified 10/10/23 13:56) increased anxiety scopolamine [SCOPOLAMINE] Allergy (Intermediate, Verified 10/10/23 13:56) increased anxiety Medication List - Last Reconciled 10/10/23 by Josseline Carrera MD bupropion HCl XL 150 mg PO QAM cetirizine 10 mg PO DAILY PRN 90 days fluticasone propionate 50 mcg/actuation 1 spray intranasal DAILY PRN 30 days gabapentin 800 mg PO TID 30 days glatiramer (Copaxone) 20 mg subcut 3XW lorazepam 1 mg PO BID PRN 30 days lorazepam 1 mg (2 x 0.5 mg) PO BID PRN 30 days naproxen 500 mg PO BID PRN 90 days propranolol 10 mg (1/2 x 20 mg) PO BID 90 days Tobacco use date assessed: 04/09/23 Dental Screening Dental Screen Date: 04/09/23 HPI HPI Comments History of Present Illness Details This is a 43-year-old female with mild major depression, anxiety, multiple sclerosis and fibromyalgia that comes today complaining of fatigue and tiredness associated with weakness that has been present for few weeks. No fever. No joint pain. No rash. Depression and anxiety has been stable with bupropion and benzodiazepines as needed. Multiple sclerosis is follow by Neurology and has a new Neurology appointment at [facility] for a 2nd opinion. Used to be at [facility] on Copaxone doing well. Stop Copaxone for few months due to anxiety and depression. Had an MRI this year showing new lesions as per patient. Fibromyalgia stable with gabapentin. [facility] Medical History Diaphragmatic hernia BMI 36.0-36.9,adult History of COVID-19 Panic attacks PONV (postoperative nausea and vomiting) BMI 37.0-37.9, adult Flank pain BMI 39.0-39.9,adult Breast pain, right Left breast lump Mid back pain Dyspnea Precordial chest pain Skin spots-aging Mild recurrent major depression Urticaria Sleep disturbance Knee pain Fibromyalgia Ingrown toenail Morbid obesity Obesity Allergic rhinitis GERD (gastroesophageal reflux disease) Physical exam Surgical History History of sleeve gastrectomy S/P laparoscopic sleeve gastrectomy History of bilateral breast reduction surgery History of cholecystectomy History of partial hysterectomy Family History Father Hypercholesteremia Hypertension Diabetes Obese Mother Diabetes Hypertension Hypercholesteremia Depression with anxiety Maternal Grandmother Liver problem Maternal Aunt Uterine cancer Maternal Uncle Kidney problem Family/Other Mental health disorder Social History Housing: Apartment Are you a primary account executive healthcare to a significant other at home: No Do you presently have visiting nurse or other home services: No Alcohol intake: current Alcohol intake frequency: holidays/special occasions only Alcohol type: wine and hard liquor Comment: soreness Patient Tobacco Use Status: Never used Tobacco e-Cigarette/Vaping Use: Never Used Second Hand Smoke Exposure: No service: No Current occupational status: employed Current occupational exposures/hazards: No Cognitive needs: No Hearing needs: No Vision needs: No Questionnaire Thrive Questionnaire Date Thrive assessed: 04/09/23 ELY-7 AMB Questionnaire ELY-7 Date ELY - 7 assessed: 04/09/23 Source: Developed by Drs. Janusz Larsen, Maria Del Carmen Gonzalez, Santana Badillo and colleagues, with an educational jose from [employer]. Review of Systems Const All systems reviewed & are unremarkable except as noted in HPI and below Card Denies chest pain at rest, Denies chest pain with activity, Denies edema, Denies irregular heart rhythm, Denies claudication, Denies dyspnea, Denies dyspnea on exertion, Denies orthopnea, Denies paroxysmal nocturnal dyspnea and Denies slow heart rate Resp Denies cough, Denies dyspnea and Denies dyspnea on exertion GI Denies abdominal pain, Denies change in bowel habits, Denies excessive flatus, Denies nausea and Denies vomiting Physical exam (Primary Care) Vital Signs: Last Vital Signs BP 110/70 10/10/23 13:40 BMI result Body Mass Index 32.9 Tobacco/Smoking Status: Tobacco use Status Tobacco use date assessed 04/09/23 10/10/23 13:41 Patient Tobacco Use Status Never used Tobacco 10/10/23 13:41 Tobacco use type 12/05/22 08:58 e-Cigarette/Vaping Use Never Used 10/10/23 13:41 Thrive Assessment: Date of Thrive Assessment Date Thrive assessed 04/09/23 10/10/23 13:41 Resp Effort & Inspection: normal respiratory effort Auscultation: clear to auscultation bilaterally Cardio Jugular venous distension: no JVD Rate: regular rate Rhythm: regular rhythm Heart sounds: S1 normal heart sound present and S2 normal heart sound present Extrem General: Yes full ROM Assessment and Plan Assessment & Plan (1) Mild major depression: Code(s): F32.0 - Major depressive disorder, single episode, mild Plan: Continue bupropion. (2) Multiple sclerosis: Code(s): G35 - Multiple sclerosis Plan: Continue Copaxone. Follow-up with Neurology. (3) Anxiety: Code(s): F41.9 - Anxiety disorder, unspecified Plan: Continue benzodiazepines as needed. Patient is aware that can cause addiction, sedation and memory loss. (4) Fibromyalgia: Code(s): M79.7 - Fibromyalgia Plan: Continue gabapentin. Patient is aware that gabapentin can cause tiredness and mild confusion and memory loss. Orders: Orders Comprehensive [place]. Panel Fast Today G35 - Multiple sclerosis Vitamin D 25-OH Total Today E55.9 - Vitamin D deficiency, unspecified Vitamin B12 and Folate Today E53.8 - Deficiency of other specified B group vitamins Thyroid Stimulating Hormone Today F41.9 - Anxiety disorder, unspecified Complete Blood Count Auto Diff Today D64.9 - Anemia, unspecified, G35 - Multiple sclerosis Medications: Refilled bupropion HCl XL 150 mg PO QAM 90 tabs 2RF lorazepam 1 mg (2 x 0.5 mg) PO BID PRN 120 tabs 0RF anxiety 30 days F41.9 - Anxiety disorder, unspecified Coding Level of Care Code Est Pt Level 4 (40216) Complex EM visit Add On G2211 Diagnoses Mild major depression F32.0 Multiple sclerosis G35 Anxiety F41.9 Fibromyalgia M79.7 Time Spent (min) 24
== END 2023-10-10 14:12 | disposition home or self-care (01) ==
PROVIDERS: PCP Internal Medicine; Visit Provider Internal Medicine
DX: F32.0 Major depressive disorder, single episode, mild (principal); G35 Multiple sclerosis; F41.9 Anxiety disorder, unspecified; M79.7 Fibromyalgia
CPT/HCPCS: 99214; G2211

== ENCOUNTER 2024-04-15 13:09 | Outpatient (AMB) | payer OTHER, MEDICARE, SELFPAY ==
[2024-04-15 13:12] VITALS: BP 112/80; BMI 34.4
--- NOTE | 2024-04-15 13:12 | A.OFFPC_ITS ---
Vital Signs 04/15/24 13:12 Height 5 ft 3 in Weight 194 lb BMI 34.4 BP 112/80 Blood Pressure Location Lt brachial Position Sitting Intake Visit Reasons: PE Intake Note: Patient here for a physical exam Applications Architect Required: No Accompanied by: Self / Same As Patient Allergies bupropion Allergy (Intermediate, Verified 04/15/24 13:27) suicidal thoughts with higher doses Compazine Allergy (Intermediate, Verified 04/15/24 13:27) increased anxiety scopolamine [SCOPOLAMINE] Allergy (Intermediate, Verified 04/15/24 13:27) increased anxiety Medication List - Last Reconciled 04/15/24 by Josseline Carrera MD baclofen mg PO bupropion HCl XL 150 mg PO QAM cetirizine 10 mg PO DAILY PRN 90 days fluticasone propionate 50 mcg/actuation 1 spray intranasal DAILY PRN 30 days gabapentin 800 mg PO TID 30 days lorazepam 1 mg PO BID PRN 30 days lorazepam 1 mg (2 x 0.5 mg) PO BID PRN 30 days naproxen 500 mg PO BID PRN 90 days propranolol 10 mg (1/2 x 20 mg) PO BID 90 days Tobacco use date assessed: 04/15/24 Dental Screening Dental Screen Date: 04/15/24 Did you have a dental visit in the last 12 months?: Yes Did you have a dental problem in the last 6 months where you did not have access to dental care?: No Was dental information given to patient?: Patient has dentist HPI HPI Comments History of Present Illness Details The patient is a 44-year-old female presenting with a routine physical examination and management of multiple sclerosis. She has a chronic condition of multiple sclerosis, currently managed with Ocrevus infusions every six months. She is a breast cancer survivor, which contributes to her cautious approach toward medication. Her concerns are particularly centered around anxiety exacerbation linked to prior use of Bupropion, which she takes at 150 mg. Additionally, she has allergies to Bupropion, Compasin, and Scopolamine, leading her to use Lorazepam for anxiety management when necessary. The patient also reports knee pain related to decreased physical activity and post-operative recovery, and a preliminary approach involving a knee X-ray has been suggested. Dermatologically, she has melasma and seeks treatment with a topical cream. Preventive health measures such as mammogram (last in 2022) and pending Pap smears and colonoscopy are acknowledged, with openness to scheduling as part of comprehensive care. - Mammography was last completed in 2022 - Patient open to scheduling colonoscopy and Pap smear for preventive care - Discussed management and monitoring of multiple sclerosis with Ocrevus infusions every six months - Counseled on anxiety management, using Lorazepam as needed - Melasma topical treatment under consid eration [facility] Medical History Diaphragmatic hernia BMI 36.0-36.9,adult History of COVID-19 Panic attacks PONV (postoperative nausea and vomiting) BMI 37.0-37.9, adult Flank pain BMI 39.0-39.9,adult Breast pain, right Left breast lump Mid back pain Dyspnea Precordial chest pain Skin spots-aging Mild recurrent major depression Urticaria Sleep disturbance Knee pain Fibromyalgia Ingrown toenail Morbid obesity Obesity Allergic rhinitis GERD (gastroesophageal reflux disease) Physical exam Surgical History History of sleeve gastrectomy S/P laparoscopic sleeve gastrectomy History of bilateral breast reduction surgery History of cholecystectomy History of partial hysterectomy Family History Father Hypercholesteremia Hypertension Diabetes Obese Mother Diabetes Hypertension Hypercholesteremia Depression with anxiety Maternal Grandmother Liver problem Maternal Aunt Uterine cancer Maternal Uncle Kidney problem Family/Other Mental health disorder Social History Housing: Apartment Are you a primary sub acute care nurse to a significant other at home: No Do you presently have visiting nurse or other home services: No Alcohol intake: current Alcohol intake frequency: holidays/special occasions only Alcohol type: wine and hard liquor Comment: soreness Patient Tobacco Use Status: Never used Tobacco e-Cigarette/Vaping Use: Never Used Second Hand Smoke Exposure: No service: No Current occupational status: employed Current occupational exposures/hazards: No Cognitive needs: No Hearing needs: No Vision needs: No Questionnaire PHQ-9 Over the last 2 weeks, how often have you been bothered by any of the following problems? 1. Little interest or pleasure in doing things: more than half the days 2. Feeling down, depressed, or hopeless: several days 3. Trouble falling or staying asleep, or sleeping too much: several days 4. Feeling tired or having little energy: more than half the days 5. Poor appetite or overeating: more than half the days 6. Feeling bad about yourself - or that you are a failure or have let yourself or your family down: not at all 7. Trouble concentrating on things, such as reading the newspaper or watching television: not at all 8. Moving or speaking so slowly that other people could have noticed. Or the opposite - being so fidgety or restless that you have been moving around a lot more than usual: not at all 9. Thoughts that you would be better off or of hurting yourself in some way: not at all Total score: 8 Depression Screening Interpretation: Positive Depression Screening Follow-up: Existing condition, In treatment and Follow-up Visit Requested Depression Screening Done: Yes 03445 - PHQ-9 Billing: Yes Source: Developed by Drs. Janusz Larsen, Maria Del Carmen Gonzalez, Santana Badillo and colleagues, with an educational jose from [employer]. Thrive Questionnaire Date Thrive assessed: 04/15/24 I am a: Patient What is your living situation today?: I choose not to answer this question Within the past 12 months, did the food you bought not last and you didn't have the money to get more?: I choose not to answer this question Within the past 12 months, did you worry whether your food would run out before you got money to buy more?: I choose not to answer this question Do you have trouble paying for medicines?: I choose not to answer this question Do you have trouble getting transportation to medical appointments?: I choose not to answer this question Do you have trouble paying your heating and electricity bill?: I choose not to answer this question Do you have trouble taking care of your child, family member or friend?: I choose not to answer this question Do you have trouble with day-to-day activities such as bathing, preparing meals, shopping, managing finances, etc.?: I choose not to answer this question Are you currently unemployed and looking for a job?: I choose not to answer this question Are you interested in more education?: I choose not to answer this question Please select the resources that you would like help with: None Currently or been in a relationship where the following occur: I choose not to answer THRIVE Score: 0 AUDIT C Alcohol Use Questionnaire (AUDIT-C) 1. How often do you have a drink containing alcohol?: Never Total Score: 0 Score Reviewed/Action Taken: No ELY-7 AMB Questionnaire ELY-7 Date ELY - 7 assessed: 04/15/24 Feeling nervous, anxious, or on edge: 1 = Several days Not being able to stop or control worryin = Several days Worrying too much about different things: 1 = Several days Trouble relaxin = Several days Being so restless that it is hard to sit still: 1 = Several days Becoming easily annoyed or irritable: 1 = Several days Feeling afraid as if something awful might happen: 0 = Not at all Total ELY-7 score (0-4 normal; 5-9 mild; 10-14 moderate; 15-21 severe): 6 Source: Developed by Drs. Janusz Larsen, Maria Del Carmen Gonzalez, Santana Badillo and colleagues, with an educational jose from [employer]. ELY-7 Assessment Billing LEY-7 Assessment Tool: ELY-7 Assessment 45519 Review of Systems Const All systems reviewed & are unremarkable except as noted in HPI and below Card Denies chest pain at rest, Denies chest pain with activity, Denies edema, Denies irregular heart rhythm, Denies claudication, Denies dyspnea, Denies dyspnea on exertion, Denies orthopnea, Denies paroxysmal nocturnal dyspnea and Denies slow heart rate Resp Denies cough, Denies dyspnea and Denies dyspnea on exertion GI Denies abdominal pain, Denies change in bowel habits, Denies excessive flatus, Denies nausea and Denies vomiting Denies urinary incontinence, Denies urinary hesitancy and Denies urinary urgency Musc Reports arthralgias Physical exam (Primary Care) Vital Signs: Last Vital Signs BP 112/80 04/15/24 13:12 BMI result Body Mass Index 34.4 Tobacco/Smoking Status: Tobacco use Status Tobacco use date assessed 04/15/24 04/15/24 13:19 Patient Tobacco Use Status Never used Tobacco 04/15/24 13:19 Tobacco use type 12/05/22 08:58 e-Cigarette/Vaping Use Never Used 04/15/24 13:19 PHQ-9: PHQ-9 Score PHQ-9: Total score 8 04/15/24 15:24 Depression Screening Interpretation: Positive Depression Screening Follow-up: Existing condition, In treatment and Follow-up Visit Requested Thrive Assessment: Date of Thrive Assessment Date Thrive assessed 04/15/24 04/15/24 13:19 Currently or been in a relationship where the following occur: I choose not to answer HENMT Head: Yes normal to inspection, Yes normocephalic and Yes atraumatic Ears: external ears normal Eyes General: appearance normal, both eyes and all related structures Eyelids: Yes eyelids normal Conjunctivae: conjunctivae normal Neck Neck: Yes normal visual inspection and Yes supple Resp Effort & Inspection: normal respiratory effort Auscultation: clear to auscultation bilaterally Cardio Jugular venous distension: no JVD Rate: regular rate Rhythm: regular rhythm Heart sounds: S1 normal heart sound present and S2 normal heart sound present GI Inspection: Yes normal to inspection Palpation (GI): Soft to palpation and nontender Auscultation: normal bowel sounds Skin General skin exam: no rashes or lesions noted Neuro General: no focal motor deficits Extrem General: Yes full ROM Psych Appearance: grossly normal Coding Level of Care Code Est Pt Level 4 (05965) Est Pt Prev Care 40-64y(91056) Diagnoses Physical exam Z00.00 Multiple sclerosis G35 Mild major depression F32.0 Melasma L81.1 Left knee pain M25.562 Right knee pain M25.561 Additional Codes ELY-7 Assessment Billing - ELY-7 Assessment Tool: ELY-7 Assessment 80567 ([id number]) PHQ-9 - 13259 - PHQ-9 Billing: Yes ([id number]) Time Spent (min) 35 Assessment & Plan Assessment & Plan (1) Physical exam: Code(s): Z00.00 - Encounter for general adult medical examination without abnormal findings Category: Medical (2) Multiple sclerosis: Code(s): G35 - Multiple sclerosis Category: Medical (3) Mild major depression: Code(s): F32.0 - Major depressive disorder, single episode, mild Category: Medical (4) Melasma: Code(s): L81.1 - Chloasma Category: Medical (5) Left knee pain: Code(s): M25.562 - Pain in left knee Category: Medical (6) Right knee pain: Code(s): M25.561 - Pain in right knee Category: Medical Plan For the management of multiple sclerosis, the patient will continue with Ocrevus infusions every six months under close monitoring. Anxiety will be managed with Lorazepam on an as-needed basis, and weight management strategies will be emp hasized to assist with knee pain. Additionally, it is essential to avoid allergens like Bupropion, Compasin, and Scopolamine to prevent adverse reactions. A topical cream will be considered for the treatment of melasma, and engaging in conservative management with imaging for knee assessment will be initiated. Preventive health measures, including scheduling a Pap smear and planning for a future colonoscopy, are part of the comprehensive care plan. Patient was informed and verbally consented to the use of an ambient scribe for clinic note documentation during this visit. I discussed the ongoing management plan for the patient's multiple sclerosis with the continuation of Ocrevus infusions every six months and emphasized the importance of consistent monitoring due to her history as a breast cancer survivor. We addressed anxiety management through the use of Lorazepam as needed and the need to avoid allergens that exacerbate symptoms. The patient was advised on a conservative approach to knee pain involving initial imaging and the importance of physical activity for weight management. Regarding dermatological concerns, I recommended a topical cream for melasma treatment. I encouraged scheduling a Pap smear and considering a colonoscopy to enhance preventive care, along with arranging for necessary laboratory tests. Follow-up plans were established to monitor these aspects and adjust care as necessary. Orders: Orders MM tomosynthesis screening BI Today Z12.31 - Encounter for screening mammogram for malignant neoplasm of breast Lipid Panel Today E78.5 - Hyperlipidemia, unspecified, Z00.00 - Encounter for general adult medical examination without abnormal findings XR knee RT 2V Today M25.561 - Pain in right knee Comprehensive [place]. Panel Fast Today Z00.00 - Encounter for general adult medical examination without abnormal findings XR knee LT 2V Today M25.562 - Pain in left knee Referrals Dermatology Referral L81.1 - Chloasma BRANCH OFFICE ADMINISTRATOR Referral Z12.4 - Encounter for screening for malignant neoplasm of cervix Open Access Screening Colonoscopy Referral Z12.12 - Encounter for screening for malignant neoplasm of rectum Medications: New hydroquinone 4% 1 appl topical DAILY 28.4 grams 1RF 30 days Refilled naproxen 500 mg PO BID PRN 180 tabs 1RF pain 90 days Patient Instructions: - Continue Ocrevus infusions as scheduled and monitor for any side effects - Use Lorazepam for anxiety only as needed - Avoid allergens: Bupropion, Compasin, and Scopolamine - Implement weight management strategies to aid knee pain - Apply prescribed topical cream for melasma - Schedule Pap smear and discuss future colonoscopy - Follow up with laboratory tests as instructed - Maintain open communication regarding any new symptoms or concerns
--- OUTSIDE RECORDS SUMMARY | 2024-04-15 16:25 | XMS_ITS | Clinical Summary ---
Author Organization [address] [facility] Address [address] [place] [address] Phone Care Team Providers Care Digital Content Coordinator Name Role Phone Josseline Carrera MD Primary Care Provider [phone] Allergies Active Allergy Reactions Criticality Noted Date Comments Prochlorperazine Irritable 01/02/2024 Scopolamine Itching 01/02/2024 Medications buPROPion XL (WELLBUTRIN XL) 150 mg 24 hr tablet 10/10/2023 Active cetirizine (ZyrTEC) 10 mg tablet Take 1 tablet (10 mg total) by mouth. 06/25/2018 Active drospirenone-et hinyl estradioL (GIANVI,LORYNA, NIGEL) 3-0.02 mg per tablet Take by mouth. 07/14/2021 Active ergocalciferol (VITAMIN D-2) 1,250 mcg (50,000 unit) capsule Take 1 capsule (50,000 Units total) by mouth once a week. 10/12/2023 Active fluconazole (DIFLUCAN) 150 mg tablet Take 1 tablet (150 mg total) by mouth. 07/14/2021 Active gabapentin (NEURONTIN) 800 mg tablet TAKE 1 TABLET BY MOUTH 3 TIMES A DAY,X90 DAYS 08/28/2023 Active LORazepam (ATIVAN) 0.5 mg tablet 10/10/2023 Active LORazepam (ATIVAN) 1 mg tablet Take 1 tablet (1 mg total) by mouth. 12/10/2013 Active magnesium oxide 400 mg magnesium capsule Take 400 mg by mouth daily. - Active riboflavin (VITAMIN B2) 400 mg tablet Take 400 mg by mouth daily. Active SUMAtriptan (IMITREX) 50 mg tablet TAKE 1 TABLET (50 MG TOTAL) BY MOUTH EVERY 2 (TWO) HOURS NEEDED. 10 tablet 3 12/25/2023 Active baclofen (LIORESAL) 10 mg tablet TAKE 1 TO 2 TABLETS BY MOUTH DAILY IN THE EVENING 180 tablet 1 02/25/2024 Active Active Problems Problem Noted Date Diagnosed Date MS (multiple sclerosis) 01/02/2024 Encounters Date Type Department Care Team Description 02/08/2024 1:30 PM EST Office Visit [facility] - [place] [address] [facility] [address] [place] [phone] Marycruz Stewart PA MS (multiple sclerosis) (CMS/HCC) (Primary Dx) 01/18/2024 9:47 AM EST - 01/18/2024 11:59 PM EST Hospital Encounter [facility] - [place] [address] [facility] [address] [place] [phone] MS (multiple sclerosis) (CMS/HCC) (Primary Dx) Discharge Disposition: Home or Self Care from Last 3 Months Surgical History Surgery Date Site/Laterality Comments HYSTERECTOMY - 2007 PROCEDURE: HISTORICAL VAGINAL HYSTERECTOMY W/O BSO; COMMENT: endometrial cancer CHOLECYSTECTOMY PROCEDURE: HISTORICAL CHOLECYSTECTOMY PARTIAL HYSTERECTOMY PROCEDURE: [place] SUPRACERVICAL ABDL HYSTER W/WO RMVL TUBE OVARY Medical History Medical History Date Comments Esophageal reflux DX:Esophageal reflux Multiple sclerosis (CMS/HCC) DX: Multiple sclerosis (HCC) H/O cancer of uterus DX:H/O canc er of uterus Anxiety and depression DX:Anxiet y and depression Fibromyalgia DX:Fibromyalgia Tachycardia DX:Tachycardia Family History Medical History Relation Name Comments Diabetes Father Hyperlipidemia Father Hypertension Father Diabetes Mother Hyperlipidemia Mother Hypertension Mother Relation Name Status Comments Father Alive Coronary Artery disease, hypertension, diabetes, hyperlipidemia Mother Alive Diabetes, hyper tension, hyperlipidemia, depression Social History Tobacco Use Types Packs/Day Years Used Date Smoking Tobacco: Unknown Tobacco Cessation:Counseling Given: Not Answered Alcohol Use Standard Drinks/Week Comments Not Currently 0 (1 standard drink = 0.6 oz pur e alcohol) Comments Unknown Sex and Gender Information Value Date Recorded Sex Assigned at Not on file Legal Sex Female 3:21 AM EST Gender Identity Not on file Sexual Orientation Not on file Obstetrics History Last Filed Vital Signs Vital Sign Reading Time Taken Comments Blood Pressure 114/80 02/08/2024 1:48 PM EST Pulse 82 02/08/2024 1:48 PM EST Temperature 37 ??C (98.6 ??F) 02/08/2024 1:48 PM EST Respiratory Rate 16 01/18/2024 1:00 PM EST Oxygen Saturation 98% 02/08/2024 1:48 PM EST Inhaled Oxygen Concentration - - Weight 84.4 kg (186 lb) 02/08/2024 1:48 PM EST Height 160 cm (5' 3 ) 02/08/2024 1:48 PM EST Body Mass Index 32.95 02/08/2024 1:48 PM EST Plan of Treatment Upcoming Encounters Date Type Department Care Team (Late st Contact Info) Description 04/28/2024 1:00 PM EDT Office Visit [facility] - [place] [address] [facility] [address] [place] [phone] Marycruz Stewart, JUAN [address] [place] [address] [place] [address] 07/08/2024 10:00 AM EDT Appointment [facility] - [place] [address] [phone] Health Maintenance Due Date Last Done Comments Breast Cancer Screening 1978 Hepatitis B Vaccines (1 of 3 - 19+ 3-dose series) 1997 Pneumococcal Vaccine: Pediatrics (0 to 5 Years) and At-Risk Patients (6 to 64 Years) (1 of 2 - PCV) 1997 Cervical Cancer Screening: P ap Smear 1999 DTaP,Tdap,and Td Vaccines (2 - Td or Tdap) 12/22/2018 12/22/2008 COVID-19 Vaccine (3 - Pfizer risk series) 05/28/2021 04/30/2021, 06/02/2020 Cholesterol Screening (Lipid Panel) 01/15/2022 Colorectal Cancer Screening: Colonoscopy 01/15/2022 Depression Screening 01/15/2022 HIV Screening 01/15/2022 Hepatitis C Screening 01/15/2022 Social Influencers of Health Screening 01/15/2022 Influenza Vaccine (#1) 2023 02/08/2022 HIB Vaccines Aged Out No longer eligi ble based on patient's age to complete this topic HPV Vaccines Aged Out No longer eligi ble based on patient's age to complete this topic Hepatitis A Vaccines Aged Out No long er eligible based on patient's age to complete this topic IPV Vaccines Aged Out No longer eligi ble based on patient's age to complete this topic MMR Vaccines Aged Out No longer eligi ble based on patient's age to complete this topic Meningococcal ACWY Vaccine Aged Out N o longer eligible based on patient's age to complete this topic Meningococcal B Vacine Aged Out No lo nger eligible based on patient's age to complete this topic RSV Immunization Patients Under 20 months Aged Out No longer eligible b ased on patient's age to complete this topic Varicella Vaccines Aged Out No longer eligible based on patient's age to complete this topic Procedures Procedure Name Priority Date/Time Associated Diagnosis Comments EXTERNAL MRI REPORT 01/24/2024 from Last 3 Months Results * External MRI Report (01/24/2024) Anatomical Region Laterality Modality Magnetic Resonan ce Provider [facility] IMG MRI PROCEDURES Final Result from Last 3 Months Insurance [employer] Care Teams Digital Content Coordinator Relationship Specialty Start Date End Date Josseline Carrera MD [address] [facility] , [address] [facility] Physician Associ D/B/A: [facility] LAUREN Ewing PCP - General 06/05/13
--- OUTSIDE RECORDS SUMMARY | 2024-04-15 16:25 | XMS_ITS | Clinical Summary ---
Author Organization [facility] Address [address] [place] [address] Care Team Providers Care News Gathering Technician Name Role Phone Josseline Orellana MD Primary Care Provid er Medications Medication Sig Dispensed Refills Start Date End Date Status gabapentin (NEURONTIN) 800 MG tablet TAKE 1 TABLET BY MOUTH 3 TIMES A DAY,X90 DAYS 0 08/28/2023 Active LORazepam (ATIVAN) 0.5 MG tablet 0 10/10/2023 Active fluconazole (Diflucan) 150 MG tablet Take 1 tablet (150 mg total) by mouth. 0 07/14/2021 Active drospirenone-ethinyl estradiol (Priscilla) 3-0.02 MG per tablet Take by mouth. 0 07/14/2021 Active cetirizine (ZyrTEC ALLERGY) 10 MG tablet Take 1 tablet (10 mg total) by mouth. 0 06/25/2018 Active buPROPion (WELLBUTRIN XL) 150 MG 24 hr tablet 0 10/10/2023 Active LORazepam (ATIVAN) 1 MG tablet Take 1 tablet (1 mg total) by mouth. 0 12/10/2013 Active ergocalciferol (VITAMIN D2) capsule 92307 units Take 1 capsule (50,000 Units total) by mouth once a week. 4 capsule 12 10/12/2023 Active baclofen (LIORESAL) 10 MG tablet 1-2 pills at night 60 tablet 3 11/28/2023 Active Magnesium 400 MG CAPS Take 400 mg by mouth daily. 30 capsule 3 11/28/2023 Active Riboflavin 400 MG CAPS Take 400 mg by mouth daily. 30 capsule 3 11/28/2023 Active SUMAtriptan (IMITREX) 50 MG tablet Take 1 tablet (50 mg total) by mouth every 2 (two) hours as needed. 10 tablet 0 11/28/2023 Active Social History Tobacco Use Types Packs/Day Years Used Date Smoking Tobacco: Unknown Tobacco Cessation:Counseling Given: Not Answered Sex and Gender Information Value Date Recorded Sex Assigned at Female 10/09/2023 9:28 AM EDT Gender Identity Not on file Sexual Orientation Not on file Job Start Date Occupation Industry Not on file Not on file Not on file Last Filed Vital Signs Vital Sign Reading Time Taken Comments Blood Pressure 101/69 11/28/2023 11:47 AM EDT Pulse 78 11/28/2023 11:47 AM EDT Temperature 36.1 ??C (96.9 ??F) 11/28/2023 11:47 AM E DT Respiratory Rate - - Oxygen Saturation 96% 10/11/2023 1:38 PM EDT Inhaled Oxygen Concentration - - Weight 84.6 kg (186 lb 6.4 oz) 10/11/2023 1:38 P M EDT Height 160 cm (5' 3 ) 10/11/2023 1:38 PM EDT Body Mass Index 33.02 10/11/2023 1:38 PM EDT Plan of Treatment Health Maintenance Due Date Last Done Comments Hepatitis B Vaccines (1 of 3 - 3-dose series) 1978 Hepatitis C Screening 1978 COVID-19 Vaccine (#1) 1978 Depression Screening 1990 BMI Counseling 02/16/1996 Preventative Health Evaluation 02/16/1996 DTap / Tdap / Td (1 - Tdap) 1997 Cervical Cancer Screening (P ap Smear) 1999 Colon Cancer Screening (Colonoscopy) 2023 Influenza Vaccine (#1) 2023 Pneumococcal Vaccine Aged Out No long er eligible based on patient's age to complete this topic RSV Ped < 20 months Aged Out No longe r eligible based on patient's age to complete this topic Care Teams News Gathering Technician Relationship Specialty Start Date End Date Josseline Orellana MD [address] [facility] , [address] [facility] D/B/A: [facility] [place] [address] PCP - General Internal Medicine 10/08/23
--- OUTSIDE RECORDS SUMMARY | 2024-04-15 16:25 | XMS_ITS ---
Author Name [facility] Organization Unknown History of Medication Use Medication Directions Dispensed Refills Start Date End Date Stat us cetirizine (ZyrTEC ALLERGY) 10 MG tablet Take 1 tablet (10 mg total) by mouth. 06/25/2018 active LORazepam (ATIVAN) 0.5 MG tablet 10/10/2023 active LORazepam (ATIVAN) 1 MG tablet Take 1 tablet (1 mg total) by mouth. 12/10/2013 active glatiramer acetate (COPAXONE) 40 MG/ML SOSY injection Inject 1 mL (40 mg total) under the skin. 10/03/2022 active gabapentin (NEURONTIN) 800 MG tablet TAKE 1 TABLET BY MOUTH 3 TIMES A DAY,X90 DAYS 08/28/2023 active fluconazole (Diflucan) 150 MG tablet Take 1 tablet (150 mg total) by mouth. 07/14/2021 active Problems Problem Status Onset Date Problem Type Date of Resoluti on Source Multiple sclerosis (HCC) active EncounterDiagnosisAct CTTHNE MG
--- OUTSIDE RECORDS SUMMARY | 2024-04-15 16:25 | XMS_ITS | Encounter Summary ---
Demographics Address [address] [facility] [address] [place] [address] Home Phone Mobile Phone Preferred Language en Marital Status Single Amish Affiliation Unknown Race White Ethnic Group Not or Lati no Author Organization [facility] Address [address] [place] [address] Care Team Providers Care Vehicle Maintenance Supervisor Name Role Phone Josseline Carrera MD Primary Care Provider [phone] Encounter Details Date Type Department Care Team (Late st Contact Info) Description 11/28/2023 11:35 AM EDT Hospital Encounter TH HISTORIC ENCOUNTERS [facility] Agustín Boudreaux MD [address] [place] [address] [phone] Social History Tobacco Use Types Packs/Day Years Used Date Smoking Tobacco: Unknown Alcohol Use Standard Drinks/Week Comments Not Currently 0 (1 standard drink = 0.6 oz pur e alcohol) Comments Unknown Sex and Gender Information Value Date Recorded Sex Assigned at Not on file Legal Sex Female 3:21 AM EST Gender Identity Not on file Sexual Orientation Not on file documented as of this encounter Last Filed Vital Signs Vital Sign Reading Time Taken Comments Blood Pressure 101/69 11/28/2023 11:47 AM EDT Sitting Left arm Pulse 78 11/28/2023 11:47 AM EDT Temperature - - Respiratory Rate - - Oxygen Saturation - - Inhaled Oxygen Concentration - - Weight 84.6 kg (186 lb 6.4 oz) 10/11/2023 1:38 PM EDT Height 160 cm (5' 3 ) 10/11/2023 1:38 PM EDT Body Mass Index 33.02 10/11/2023 1:38 PM EDT documented in this encounter Progress Notes * Agustín Boudreaux MD - 11/28/2023 11:30 AM EDT HPI: Bonilla Sanchez is a 43 y.o. year old female referred to our center by Josseline Orellana MD for evaluation and management of MS currently not DMT Disease Summary Date of onset/Initial symptom presentation: Date of diagnosis of MS: Disease course at onset: RRMS Current disease course: RRMS Last MS exacerbation: Previous disease therapies(reason for switch): Copaxone Current disease therapy: Most recent MRI Brain: 11/2023 stable 02/2022 multiple T2 changes supratentorial periventricular stable compared to 2020 Most recent MRI Cervical spine: 11/2023 MRI has not been compared reported lesion at C2-C3 that wasnot reported in the prior MRI that may be new lesion at C5-C6 still visible 02/2022 new T2 change C5-C6 lesion compared to 2013 Most recent MRI Thoracic spine: CSF: JCV serology result and date: MS mimickers: MOG ab , AQP4 ab NEGATIVE Interval history Patient is here for follow up No new neurological symptom concerning for demyelination since last visit Patient still off DMT Since last visit still experiencing her same baseline symptoms She is experiencing headache , throbbing , burning , photophobia , phonophobia , she has been experiencing it every day , she is also experiencing neck pain She admit to loosing her balance , numbness in her hand is still occurring Reviewed lab results Reviewed and discussed MRI results with the patient with MRI brain reported stable MRI cervical spine has not been compared reported lesion at C2-C3 that was not reported in the prior MRI that may benew lesion at C5-C6 still visible HPI 43 yo female with PMH of fibromyalgia , tachycardia on propranolol , uterine cancer s/p partial hysterectomy , her neurological symptoms started multiple sclerosis almost [phone] she started havingnumbness in her toes started in Rt leg her symptoms lasted for days , was distally to proximally , which gradually spread to Lt leg ,she was evaluated by neurology with Dr Carrillo in [place] she had MRI done she had LP done and she was diagnosed with MS and she with copaxone , she was on Copaxone for almost 6 yrs after her diagnosis per the notes there were times where she was on and off Copaxone between providers, there was a discussion when she was following at [facility] with Dr. Gonzalez he can considering switching therapies Tecfidera was discussed patient per notes patient was concerned aboutJC virus and PML, though she was struggling with injection site reaction She was stable for most part , she had occasional symptoms She has been following with breast mass had a biopsy was negative , she has Chip to monitor no concerning finding Reviewing other neurological symptoms over time she lost her vision twice from her Rt eye cant recall exact time for that More recently she has been getting electric sensation in Lt face mainly ophthalmic division don't get worse with chewing or brushing teeth , last month she had it for whole day and then it happens sporadically with no specific triggers She has episode with trembling in her head occur randomly lasts for seconds She has been following at [facility] she was seeing Dr. Berna Butterfield switched to Dr Britton recently she stopped her Copaxone Active Symptoms: Bowel/bladder:she used have difficulty emptying her bladder which improved now, she has a subtle urgency now Depression/anxiety: depression on Wellbutrin 150 mg with help when increased she was suicidal and went down , anxiety Gait impairment: She has been struggling with gait imbalance Fatigue: she has been exteremly weak generalized , she has been sleeping better , she sleep 7 hrs ,she would have occasional sleepiness and catch herself Heat Sensitivity:yes Past or present Lhermitte's: no History reviewed. No pertinent past medical history. Current Outpatient Medications Medication Sig Dispense Refill ??? buPROPion (WELLBUTRIN XL) 150 MG 24 hr tablet ??? cetirizine (ZyrTEC ALLERGY) 10 MG tablet Take 1 tablet (10 mg total) by mouth. ??? drospirenone-ethinyl estradiol (Priscilla) 3-0.02 MG per tablet Take by mouth. ??? ergocalciferol (VITAMIN D2) capsule 20033 units Take 1 capsule (50,000 Units total) by mouth once a week. 4 capsule 12 ??? fluconazole (Diflucan) 150 MG tablet Take 1 tablet (150 mg total) by mouth. ??? gabapentin (NEURONTIN) 800 MG tablet TAKE 1 TABLET BY MOUTH 3 TIMES A DAY,X90 DAYS ??? glatiramer acetate (COPAXONE) 40 MG/ML SOSY injection Inject 1 mL (40 mg total) under the skin. ??? LORazepam (ATIVAN) 0.5 MG tablet ??? LORazepam (ATIVAN) 1 MG tablet Take 1 tablet (1 mg total) by mouth. No current facility-administered medications for this visit. Not on File Social history: Tobacco: No Alcohol socially Drug use: No Exercise habits:Active She has a son 27 grand son 6, daughter 4 She work parttime [employer] Family history: There is no significant family history of multiple sclerosis, rheumatoid arthritis,type 1 diabetes, lupus, or other autoimmune diseases. Neurologic Exam: BP 101/69 (BP Location: Left arm, Patient Position: Sitting) Pulse 78 Temp 96.9 ??F (36.1 ??C) (Temporal) MS: AOx3 CN: perrla, V1-3 intact to LT, face symmetric, bilateral SCM/trapezius 5/5, tongue/uvula/palate midline Motor: 5/5 in all extremities Sensation: Intact to light touch, temperature, and vibration in all extremities Reflexes: 2+ in bilateral biceps and patellae, toes downgoing bilaterally Cerebellar: FNF intact bilaterally, FFM intact bilaterally, CHAPITO intact bilaterally, tandem gait normal, romberg negative 25 foot walk Labs: Imaging: MRI brain and cervical spine with and without contrast images were reviewed by me. A/P: Bonilla Sanchez is a 43 y.o. year old female referred to our center by Josseline Orellana MD for evaluation and management of multiple sclerosis currently off DMT. Based on the clinical history, neurologic exam, and imaging, I do think that the diagnosis is most consistent with relapsing remitting multiple sclerosis concern with activity on her MRI with MRI 2022 showing use and lesion MRI cervical spine 2023 with a concern of a new lesion at CT discussed extensively the pathology of MSdifferent treatment options discussed with the patient we need to obtain imaging to assess her current lesion load and then consider different treatment options for long-term management discussed with the patient that medication carry risk but also being off treatment carry risk of relapses and progression we discussed in details different treatment options cussed different mechanism of action wediscussed mainly Trial of B-cell therapy, he want to go ahead and be started on treatment, discussed all details of B-cell therapy/Ocrevus/BRUMVI including method of administration, study results, safety profile and expectation , also discussed slight risk of infection and vaccine response patient expressed understanding and want to review and think about the options until next visit -patient handed information related to Ocrevus /BRUMVI -MRI brain and cervical spine with and without contrast 3 months after starting treatment -MRI thoracic spine ordered -PT/OT/ST referral for functional evaluation Symptomatic management Spasms /spasticity Start baclofen 10 mg at night can go up 20mg in a week Will consider urology referral Migraine headache Magnesium 400mg daily Riboflavin 400mg daily Sumatriptan abortive Take one tablet as needed for headaches, may repeat in 2 hours, do not exceed more than 2 per day Vit D deficiency Start 50,000 IU weekly Counseled on avoidance of migraine triggers, particularly sleep deprivation, missed meals, dehydration, certain foods and avoiding excessive caffeine/NSAIDs. -RTC in 2 months for follow up The patient and I discussed the clinical picture during today's appointment. Additional time was spent prior to the actual appointment reviewing records, lab values and imaging results and preparing documentation for today's visit. There was also time spent following the in person visit documenting, arranging for further diagnostic testing and follow-up appointments. The entire time spent in thisprocess was greater than 50 minutes. The majority of the actual [id number] visit was spent counseling the patient with respect to the current neurological picture. Agustín Boudreaux MD documented in this encounter Plan of Treatment Upcoming Encounters Date Type Department Care Team (Late st Contact Info) Description 04/28/2024 1:00 PM EDT Office Visit [facility] for [place] - [address] [phone] Marycruz Stewart, JUAN [address] [place] [address] [place] [address] 07/08/2024 10:00 AM EDT Appointment [facility] - [place] [address] [facility] [address] [place] [phone] documented as of this encounter Visit Diagnoses Not on filedocumented in this encounter Care Teams Vehicle Maintenance Supervisor Relationship Specialty Start Date End Date Josseline Carrera MD [address] [place] [address] , [address] Physician [facility] D[facility]A: [facility] LAUREN Ewing PCP - General 06/05/13 documented as of this encounter
== END 2024-04-15 13:56 | disposition home or self-care (01) ==
PROVIDERS: PCP Internal Medicine; Visit Provider Internal Medicine
DX: Z00.00 Encounter for general adult medical examination without abnormal findings (principal); G35 Multiple sclerosis; F32.0 Major depressive disorder, single episode, mild; L81.1 Chloasma; M25.562 Pain in left knee; M25.561 Pain in right knee

== ENCOUNTER → 2024-04-15 13:09 | Outpatient (BNVA) | payer OTHER, SELFPAY | PROVIDERS: PCP Internal Medicine; Visit Provider Internal Medicine | DX: Z00.00 Encounter for general adult medical examination without abnormal findings (principal); G35 Multiple sclerosis; F32.0 Major depressive disorder, single episode, mild; L81.1 Chloasma; M25.562 Pain in left knee; M25.561 Pain in right knee | CPT/HCPCS: 96127 ==